=== PATIENT | male | born 1950 | race Caucasian/White ===

== ENCOUNTER 2016-09-16 12:53 | Emergency (ER) | payer OTHER ==
--- NOTE | 2016-09-16 14:53 | DIAGNOSTIC IMAGING REPORT ---
PROCEDURE: XR ABDOMEN 1 VIEW INDICATION: CONSTIPATION TECHNIQUE: AP supine and upright views. COMPARISON: Abdominal CT 06/15/16 FINDINGS: Bowel pattern is normal. Soft tissues and osseous structures are normal. Epidural catheter and pump. Lumbar fusion. IMPRESSION: 1. Normal abdomen.
--- NOTE | 2016-09-16 18:25 | ED CLINICAL REPORT ---
Clinical Report - Physicians/Mid Levels [facility] [address] [place] [address] 09/16/2016 12:53 Patient: ROSA ELENA HANNA Time Seen: 1340; initial patient contact. HISTORY OF PRESENT ILLNESS Chief Complaint: BACK PAIN and CHRONIC BACK PAIN. Onset- several years ago. Modifying factors- worsened by bending over and lifting. Not relieved by anything. It is described as being moderate in degree and in the area of the left lower lumbar spine and right lower lumbar spine. The quality is noted to be similar to prior episodes. No radiation. No bladder dysfunction, bowel dysfunction, sensory loss or motor loss. Additional history - States his Suboxone is not working. Patient denies an injury but injury to the head or neck. Similar symptoms previously: Many times. Recent medical care: Not recently seen/assessed. REVIEW OF SYSTEMS No fever, chills or difficulty with urination. He has had abdominal pain and nausea. All systems otherwise negative, except as recorded above. PAST HISTORY Nausea. Hypertension. Abdominal Pain. Substance Abuse. Vomiting. Back Pain. ADDITIONAL SURGERIES: Appendectomy. Back Surgery. SOCIAL HISTORY Never smoker. No alcohol use or drug use. ADDITIONAL NOTES The nursing notes have been reviewed with agreement regarding the chief complaint, PMH and patient medications and allergies. PHYSICAL EXAM Vital Signs: 09/16/2016 13:16 BP: 145/91. HR: 101. RR: 18. O2 saturation: 98%. Temp: 98.1 F. Have been reviewed. Hypertensive. Tachycardic. Respiratory rate normal. Temperature normal. Oxygen saturation normal. Appearance: Alert. No acute distress. ENT: Dry mucous membranes present. CVS: Heart sounds normal. No cardiac murmur. Respiratory: No respiratory distress. Breath sounds normal. Abdomen: No visible injury. Soft and nontender. Bowel sounds normal. No organomegaly. No mass. Back: Moderate soft tissue tenderness in the right lower and left lower lumbar area. No muscle spasm in the back or vertebral point tenderness. Extremities: Extremities exhibit normal ROM. No lower extremity edema. Extremities nontender. Neuro: Oriented X 3. Mood/affect normal. Straight leg raising: negative on the right and negative on the left. PROGRESS AND PROCEDURES Disposition: Discharged home in good and improved condition. Condition: good. CLINICAL IMPRESSION Chronic nontraumatic lumbar back pain associated with muscle strain. INSTRUCTIONS Your Current Medications: STOP TAKING THE FOLLOWING MEDICATIONS: Suboxone Sublingual. CONTINUE TAKING THE FOLLOWING MEDICATIONS: Gabapentin Oral : Capsule 300 mg, 4 pills a day, 2 in am 2 in pm. Laxative/Stool Softener*. Oxybutynin Chloride Oral : for urine flow. Prescription Medications: Hydrocodone/APAP 5mg / 325mg: take 1-2 orally every 6 hours. Dispense twenty (20). No refill. Follow-up: Follow up with your doctor tomorrow. Call for an appointment. Screening today revealed the patient's blood pressure to be in the hypertensive range. The patient should follow up with a primary care provider for blood pressure management. (Electronically signed by Farshad Gaitan Dr. 09/17/2016 21:36)
--- NOTE | 2016-09-16 18:25 | ED CLINICAL REPORT ---
Clinical Report - Physicians/Mid Levels [facility] [address] [place] [address] 09/16/2016 12:53 Patient: ROSA ELENA HANNA Time Seen: 1340; initial patient contact. HISTORY OF PRESENT ILLNESS Chief Complaint: BACK PAIN and CHRONIC BACK PAIN. Onset- several years ago. Modifying factors- worsened by bending over and lifting. Not relieved by anything. It is described as being moderate in degree and in the area of the left lower lumbar spine and right lower lumbar spine. The quality is noted to be similar to prior episodes. No radiation. No bladder dysfunction, bowel dysfunction, sensory loss or motor loss. Additional history - States his Suboxone is not working. Patient denies an injury but injury to the head or neck. Similar symptoms previously: Many times. Recent medical care: Not recently seen/assessed. REVIEW OF SYSTEMS No fever, chills or difficulty with urination. He has had abdominal pain and nausea. All systems otherwise negative, except as recorded above. PAST HISTORY Nausea. Hypertension. Abdominal Pain. Substance Abuse. Vomiting. Back Pain. ADDITIONAL SURGERIES: Appendectomy. Back Surgery. SOCIAL HISTORY Never smoker. No alcohol use or drug use. ADDITIONAL NOTES The nursing notes have been reviewed with agreement regarding the chief complaint, PMH and patient medications and allergies. PHYSICAL EXAM Vital Signs: 09/16/2016 13:16 BP: 145/91. HR: 101. RR: 18. O2 saturation: 98%. Temp: 98.1 F. Have been reviewed. Hypertensive. Tachycardic. Respiratory rate normal. Temperature normal. Oxygen saturation normal. Appearance: Alert. No acute distress. ENT: Dry mucous membranes present. CVS: Heart sounds normal. No cardiac murmur. Respiratory: No respiratory distress. Breath sounds normal. Abdomen: No visible injury. Soft and nontender. Bowel sounds normal. No organomegaly. No mass. Back: Moderate soft tissue tenderness in the right lower and left lower lumbar area. No muscle spasm in the back or vertebral point tenderness. Extremities: Extremities exhibit normal ROM. No lower extremity edema. Extremities nontender. Neuro: Oriented X 3. Mood/affect normal. Straight leg raising: negative on the right and negative on the left. PROGRESS AND PROCEDURES Disposition: Discharged home in good and improved condition. Condition: good. CLINICAL IMPRESSION Chronic nontraumatic lumbar back pain associated with muscle strain. INSTRUCTIONS Your Current Medications: STOP TAKING THE FOLLOWING MEDICATIONS: Suboxone Sublingual. CONTINUE TAKING THE FOLLOWING MEDICATIONS: Gabapentin Oral : Capsule 300 mg, 4 pills a day, 2 in am 2 in pm. Laxative/Stool Softener*. Oxybutynin Chloride Oral : for urine flow. Prescription Medications: Hydrocodone/APAP 5mg / 325mg: take 1-2 orally every 6 hours. Dispense twenty (20). No refill. Follow-up: Follow up with your doctor tomorrow. Call for an appointment. Screening today revealed the patient's blood pressure to be in the hypertensive range. The patient should follow up with a primary care provider for blood pressure management. (Electronically signed by Farshad Gaitan Dr. 09/17/2016 21:36)
--- NOTE | 2016-09-16 18:25 | ED NURSING NOTES ---
Clinical Report - Nurses [facility] [address] [place] [address] 09/16/2016 12:53 Patient: ROSA ELENA HANNA TRIAGE Triage time 13:16 Sep 16 2016. Acuity: LEVEL 3. Chief Complaint: NAUSEA. Alert. No acute distress. (anxious, tearful). --13:24 Josefa Cherry R.N. 13:16 09/16/16. BP: 145/91. HR: 101. RR: 18. O2 saturation: 98%. Temp: 98.1 F. Pain level now 05/17. --13:24 Josefa Cherry R.N. Triage time 13:44 Sep 16 2016. Acuity: LEVEL 3. Chief Complaint: ABDOMINAL PAIN, NAUSEA and VOMITING and FEVER (constipation). SEPSIS SCREEN: Sepsis Screen: negative heart rate greater than 90. --13:50 Jaspreet New R.N. 13:44 09/16/16. BP: 158/84. HR: 102. RR: 18. O2 saturation: 97% on room air. Temp: 99 F. FLACC pain scale: 4/10. --13:50 Jaspreet New R.N. Weight: 75.2 kg measured. Height/Length: 70 inches Per Patient. BMI: 23.8. --13:16 Josefa Cherry R.N. Medications Suboxone Sublingual. --13:19 Josefa Cherry R.N. Oxybutynin Chloride Oral (for urine flow). --13:20 Josefa Cherry R.N. Gabapentin Oral (Capsule 300 mg), 4 pills a day, 2 in am 2 in pm. --13:20 Josefa Cherry R.N. Laxative/Stool Softener. --13:46 Jaspreet New R.N. Implanted Neuro-stimulator device. --18:45 Prashant Munoz R.N. Medication/allergy information source: the patient. --13:24 Josefa Cherry R.N. Allergies Tramadol. --13:47 Jaspreet New R.N. The following entry was struck by Jaspreet New R.N., 13:47 (09/16/16) Reason - other(Pt reports he thinks he might have had an allergic rxn to tramadol). <<STRICKEN ENTRY-- No Known Drug Allergy. --13:19 Josefa Cherry R.N. --END STRIKE>>. History Arrived by private vehicle. Historian: patient. Accompanied by family and (son). Primary physician (Dr. Wise). ( "My low to middle back hurts, I'm nauseated and have blurred vision". "I take Gabapentin for back pain". Pt states his meds are not "dissolving" and "constipated". Pt states he's had these symptoms for awhile, cannot pin point the date. [place] out of town.). The patient has had nausea and constipation. Treatment LEGAL EXECUTIVE ASSISTANT: None. PAST MEDICAL HX: Immunizations: seasonal influenza. SOCIAL HX: Heavy tobacco smoker (cigarette)- less than 1 pack per day. No alcohol use or drug use. No recent travel. No infectious disease exposure. No known contact with a sick individual. FALL RISK ASSESSMENT: Fall risk assessment completed. No fall risk identified. NUTRITIONAL RISK ASSESSMENT: The nutritional risk assessment revealed no deficiencies. FUNCTIONAL ASSESSMENT: Functional assessment: no impairments noted. LEARNING NEEDS ASSESSMENT: The learning needs assessment revealed no barriers. SKIN INTEGRITY ASSESSMENT: Skin integrity risk assessment completed. No skin integrity risk identified. --13:24 Josefa Cherry R.N. Arrived by private vehicle. Historian: patient. Onset. (1 week ago). He has had fever, nausea, vomiting and abdominal pain. He has had constipation (Pt reports last BM last night but takes a laxative regularly). PAST MEDICAL HX: Immunizations: up-to-date. SURGERY HX: Back surgery. Laminectomy; fusion at L2-L3. (L2-L3 fusion with hardware d/t injury). Dental surgery (teeth removal). Splenectomy. SOCIAL HX: Current every day heavy tobacco smoker- less than 1 pack per day. Alcohol use; consumes beer occasionally and wine by the glass. History of drug use: marijuana. No known contact with a sick individual. ( Past Hx of marijuana use). FALL RISK ASSESSMENT: Fall risk assessment completed. No fall risk identified. NUTRITIONAL RISK ASSESSMENT: The nutritional risk assessment revealed no deficiencies. FUNCTIONAL ASSESSMENT: Functional assessment: no impairments noted. LEARNING NEEDS ASSESSMENT: The learning needs assessment revealed no barriers. SKIN INTEGRITY ASSESSMENT: Skin integrity risk assessment completed. No skin integrity risk identified. --13:50 Jaspreet New R.N. SOCIAL HX: Infectious disease exposure. (Hepatitis A). --13:57 Jaspreet New R.N. PROBLEMS: Nausea. Hypertension. Abdominal Pain. Substance Abuse. Vomiting. Back Pain. --13:21 Josefa Cherry R.N. ADDITIONAL SURGERIES: Appendectomy. --13:21 Josefa Cherry R.N. Implanted Neuro-stimulator device. --18:46 Prashant Munoz R.N. The following entry was struck by Prashant Munoz R.N., 18:45 <<STRICKEN ENTRY-- Back Surgery. --15:52 Josefa Cherry R.N. --END STRIKE>>. Interventions ID band on patient. To room. --13:24 Josefa Cherry R.N. ID band on patient. To treatment room. --13:50 Jaspreet New R.N. PHYSICAL ASSESSMENT GENERAL / NEURO / PSYCH: Alert. Appears in pain and anxious. RESPIRATORY: Mild respiratory distress. GI / : Abdominal tenderness in the epigastric area. SKIN: Skin is warm and dry. --13:51 Jaspreet New R.N. NURSING PROGRESS NOTES Monitoring of patient in place. Reassurance given. Two patient identifiers checked. Call light placed in reach. Bed placed in lowest position. Patient ready for evaluation- chart flagged. Patient waiting for evaluation. --13:52 Jaspreet New R.N. Patient gowned. --13:54 Jaspreet New R.N. 16:05 09/16/2016 Site #1 started via IV in the right antecubital space with an 20g angiocath, with good blood return; one attempt. Blood drawn: rainbow set. Labeled in the presence of the patient and sent to the lab. Saline lock flushed with 10 mL saline. --16:05 Jaspreet New R.N. Patient ID band checked for patient name and birthdate: patient confirmed. Blood samples drawn by nurse per protocol ; labeled in presence of the patient and sent to lab: rainbow set. Checked patient name and birthdate: patient confirmed. Instructions provided to collect clean catch urine and patient verbalized understanding. Clean catch urine collected with return of yellow-colored clear urine; sample sent to lab for urinalysis. Specimen labeled in the presence of the patient. --16:06 Jaspreet New R.N. 16:05 09/16/16. BP: 130/99. HR: 79. RR: 16. O2 saturation: 98% on room air. Temp: 98.4 F. Pain level now: 02/14. --16:06 Jaspreet New R.N. ( Patient has been resting quietly and is suddenly agitated, standing up at bedside, states "I'm withdrawing from my Suboxone". MD ordered IV Morphine at this time. Pt's VS elevated.). --18:07 Jaspreet New R.N. 18:07 09/16/16. BP: 160/50. HR: 86. RR: 18. O2 saturation: 95% on room air. Pain level now: 03/17. --18:07 Jaspreet New R.N. 18:08 09/16/2016 Morphine IVP 4 mg given. via site #1. Allergies verified, confirmed 5 rights and sedative warning given to the patient. IV patency established. IV site checked: no pain, redness, or swelling. IV flushed thoroughly pre- and post-medication administration. IVP given by RN. --18:09 Jaspreet New R.N. 19:02 09/16/2016 Site #1 removed upon discharge. Catheter intact. Manual pressure applied. --19:02 Jaspreet New R.N. 19:02 09/16/2016 Morphine IVP Response: no adverse reaction pain is improving. Symptoms have improved the patient feels better. --19:02 Jaspreet Nwe R.N. Reassessment after intervention and medication administered. He is calm. Overall patient status is improved- he states feels better. --19:03 Jaspreet New R.N. DISPOSITION / DISCHARGE Condition at departure: improved and stable. No learning barriers present. Discharge instructions provided and reviewed with the patient. Reviewed medication(s) side effects and precautions information. Prescription(s) given to the patient. Reviewed referral to a primary care physician. Patient verbalized understanding. Written instructions provided in Bulgarian. The patient was discharged by the physician. He was discharged home and accompanied by family. He left the Emergency Department ambulatory and via private vehicle. Family member driving (Patient is calling his son to take him home this evening.). --19:04 Jaspreet New R.N. 19:04 09/16/16. BP: 147/88. HR: 78. RR: 16. O2 saturation: 96% on room air. Temp: 98.3 F. Pain level now: 12/15. --19:04 Jaspreet New R.N. Locked/Released at 09/16/2016 19:16 by Jaspreet New R.N.
--- NOTE | 2016-09-16 18:25 | ED ORDER SUMMARY ---
..... Patient: ROSA ELENA HANNA OrderSheet [facility] VisitID: [id number] [place] [address] 66y, M Registration Date/Time: 09/16/2016 ORDER SHEET Weight: 75.2 kg (measured) Allergies: Tramadol GENERAL ORDERS: Abdomen 1V Urgent (14:15 09/16/2016 Crista Weiss) (Ack 14:32 TBergley) (15:01 TBergley) CBC w Diff Urgent (15:51 09/16/2016 Crista Weiss) (Ack 15:57 TBergley) (16:04 MCook R.N.) CMP Urgent (15:51 09/16/2016 Crista Weiss) (Ack 15:57 TBergley) (16:04 MCook R.N.) UA-Culture if indicated Urgent (15:51 09/16/2016 Crista Weiss) (Ack 15:57 TBergley) (16:04 MCook R.N.) Amylase Urgent (15:51 09/16/2016 Crista Weiss) (Ack 15:57 TBergley) (16:04 MCook R.N.) Lipase Urgent (15:51 09/16/2016 Crista Weiss) (Ack 15:57 TBergley) (16:04 MCook R.N.) MEDICATION ORDERS: IV FLUIDS: IV Saline Lock (15:51 09/16/2016 Crista Weiss) (16:05 MCook R.N.) Morphine IV 4 mg (HIGH ALERT MEDICATION, NOW) (17:58 09/16/2016 Crista Weiss) (18:09 MCook R.N.) ORDER SHEET NOTES: [Electronically signed by Jaspreet New R.N. (19:16 09/16/2016)] [Electronically signed by Farshad Gaitan Dr. (21:36 09/17/2016)] [Electronically locked/signed by Jaspreet New R.N. (19:16 09/16/2016)]
--- NOTE | 2016-09-16 18:25 | ED ORDER SUMMARY ---
..... Patient: ROSA ELENA HANNA OrderSheet [facility] VisitID: [id number] [place] [address] 66y, M Registration Date/Time: 09/16/2016 ORDER SHEET Weight: 75.2 kg (measured) Allergies: Tramadol GENERAL ORDERS: Abdomen 1V Urgent (14:15 09/16/2016 Crista Weiss) (Ack 14:32 TBergley) (15:01 TBergley) CBC w Diff Urgent (15:51 09/16/2016 Crista Weiss) (Ack 15:57 TBergley) (16:04 MCook R.N.) CMP Urgent (15:51 09/16/2016 Crista Weiss) (Ack 15:57 TBergley) (16:04 MCook R.N.) UA-Culture if indicated Urgent (15:51 09/16/2016 Crista Weiss) (Ack 15:57 TBergley) (16:04 MCook R.N.) Amylase Urgent (15:51 09/16/2016 Crista Weiss) (Ack 15:57 TBergley) (16:04 MCook R.N.) Lipase Urgent (15:51 09/16/2016 Crista Weiss) (Ack 15:57 TBergley) (16:04 MCook R.N.) MEDICATION ORDERS: IV FLUIDS: IV Saline Lock (15:51 09/16/2016 Crista Weiss) (16:05 MCook R.N.) Morphine IV 4 mg (HIGH ALERT MEDICATION, NOW) (17:58 09/16/2016 Crista Weiss) (18:09 MCook R.N.) ORDER SHEET NOTES: [Electronically signed by Jaspreet New R.N. (19:16 09/16/2016)] [Electronically signed by Farshad Gaitan Dr. (21:36 09/17/2016)] [Electronically locked/signed by Jaspreet New R.N. (19:16 09/16/2016)]
--- NOTE | 2016-09-17 21:37 | ED MED RECONCILIATION SUMMARY ---
Patient: ROSA ELENA HANNA Medication Reconciliation Report [facility] VisitID: [id number] [address] [place] [address] 66y, M Registration Date/Time: 09/16/2016 Weight: 75.2 kg Height/Length: 70 in. BMI: 23.8 ALLERGIES: Tramadol The patient's Home Medications are listed below: STOP TAKING THE FOLLOWING MEDICATIONS: Suboxone Sublingual CONTINUE TAKING THE FOLLOWING MEDICATIONS: Gabapentin Oral (300 mg), 4 pills a day, 2 in am 2 in pm Laxative/Stool Softener Oxybutynin Chloride Oral, for urine flow THE FOLLOWING MEDICATIONS NEED TO BE RECONCILED: Implanted Neuro-stimulator device The source(s) of the original Home Medication information: patient The following Medications were given to the patient in the Emergency Department: Morphine [IVP] IVP 4 mg, administered: 09/16/2016 6:08:00 PM The following Medications were prescribed to the patient: Hydrocodone/APAP 5mg / 325mg: take 1-2 orally every 6 hours. Dispense twenty (20). No refill. -- Farshad Gaitan Dr.
--- NOTE | 2016-09-17 21:37 | ED MAR SUMMARY ---
..... Medication Administration Record [facility] [address] [place] [address] Patient: ROS AELENA HANNA Visit ID: [id number] 66y, M Weight: 75.2 kg Height/Length: 70 in BMI: 23.8 ALLERGIES: Tramadol Given 18:08 09/16/2016 Jaspreet New R.N. Medication Administered: MORPHINE [IVP], Dose: 4 mg IVP, Site: #1 right AC. Medication Ordered: Morphine IV 4 mg (HIGH ALERT MEDICATION, NOW).
--- NOTE | 2016-09-17 21:37 | ED DISCHARGE INSTRUCTIONS ---
Patient: ROSA ELENA HANNA General Instructions [facility] VisitID: [id number] [place] [address] 66y, M Registration Date/Time: 09/16/2016 Chronic nontraumatic lumbar back pain associated with muscle strain. INSTRUCTIONS Your Current Medications: STOP TAKING THE FOLLOWING MEDICATIONS: Suboxone Sublingual. CONTINUE TAKING THE FOLLOWING MEDICATIONS: Gabapentin Oral : Capsule 300 mg, 4 pills a day, 2 in am 2 in pm. Laxative/Stool Softener*. Oxybutynin Chloride Oral : for urine flow. Prescription Medications: Hydrocodone/APAP 5mg / 325mg: take 1-2 orally every 6 hours. Dispense twenty (20). No refill. Follow-up: Follow up with your doctor tomorrow. Call for an appointment. Screening today revealed the patient's blood pressure to be in the hypertensive range. The patient should follow up with a primary care provider for blood pressure management. ADDITIONAL INFORMATION Back Pain [Acute Or Chronic] Back pain is usually caused by an injury to the muscles or ligaments of the spine. Sometimes the disks that separate each bone in the spine may bulge and cause pain by pressing on a nearby nerve. Back pain may also appear after a sudden twisting/bending force (such as in a car accident), after a simple awkward movement, or lifting something heavy with poor body positioning. In either case, muscle spasm is often present and adds to the pain. Acute back pain usually gets better in one to two weeks. Back pain related to disk disease, arthritis in the spinal joints or spinal stenosis (narrowing of the spinal canal) can become chronic and last for months or years. Unless you had a physical injury (for example, a car accident or fall) X-rays are usually not ordered for the initial evaluation of back pain. If pain continues and does not respond to medical treatment, x-rays and other tests may be performed at a later time. Home Care: You may need to stay in bed the first few days. But, as soon as possible, begin sitting or walking to avoid problems with prolonged bed rest (muscle weakness, worsening back stiffness and pain, blood clots in the legs). When in bed, try to find a position of comfort. A firm mattress is best. Try lying flat on your back with pillows under your knees. You can also try lying on your side with your knees bent up towards your chest and a pillow between your knees. Avoid prolonged sitting. This puts more stress on the lower back than standing or walking. During the first two days after injury, apply an ICE PACK to the painful area for 20 minutes every 2-4 hours. This will reduce swelling and pain. HEAT (hot shower, hot bath or heating pad) works well for muscle spasm. You can start with ice, then switch to heat after two days. Some patients feel best alternating ice and heat treatments. Use the one method that feels the best to you. You may use acetaminophen (Tylenol) or ibuprofen (Motrin, Advil) to control pain, unless another pain medicine was prescribed. [NOTE: If you have chronic liver or kidney disease or ever had a stomach ulcer or GI bleeding, talk with your doctor before using these medicines.] Be aware of safe lifting methods and do not lift anything over 15 pounds until all the pain is gone. Follow Up with your doctor or this facility if your symptoms do not start to improve after one week. Physical therapy may be needed. [NOTE: If X-rays were taken, they will be reviewed by a radiologist. You will be notified of any new findings that may affect your care.] Get Prompt Medical Attention if any of the following occur: Pain becomes worse or spreads to your legs Weakness or numbness in one or both legs Loss of bowel or bladder control Numbness in the groin or genital area Hydrocodone Bitartrate, Acetaminophen Oral tablet What is this medicine? ACETAMINOPHEN; HYDROCODONE (a set a LEEROY zahida fen; krys droe KOE done) is a pain reliever. It is used to treat mild to moderate pain. How should I use this medicine? Take this medicine by mouth. Swallow it with a full glass of water. Follow the directions on the prescription label. If the medicine upsets your stomach, take the medicine with food or milk. Do not take more than you are told to take. Talk to your privacy director regarding the use of this medicine in children. This medicine is not approved for use in children. What side effects may I notice from receiving this medicine? Side effects that you should report to your doctor or health gericare aide teacher as soon as possible: allergic reactions like skin rash, itching or hives, swelling of the face, lips, or tongue breathing problems confusion feeling faint or lightheaded, falls stomach pain yellowing of the eyes or skin Side effects that usually do not require medical attention (report to your doctor or health gericare aide teacher if they continue or are bothersome): nausea, vomiting stomach upset What may interact with this medicine? alcohol antihistamines isoniazid medicines for depression, anxiety, or psychotic disturbances medicines for sleep muscle relaxants naltrexone narcotic medicines (opiates) for pain phenobarbital ritonavir tramadol What if I miss a dose? If you miss a dose, take it as soon as you can. If it is almost time for your next dose, take only that dose. Do not take double or extra doses. Where should I keep my medicine? Keep out of the reach of children. This medicine can be abused. Keep your medicine in a safe place to protect it from theft. Do not share this medicine with anyone. Selling or giving away this medicine is dangerous and against the law. Store at room temperature between 15 and 30 degrees C (59 and 86 degrees F). Protect from light. Keep container tightly closed. Throw away any unused medicine after the expiration date. Discard unused medicine and used packaging carefully. Pets and children can be harmed if they find used or lost packages. What should I tell my health care provider before I take this medicine? They need to know if you have any of these conditions: brain tumor Crohn's disease, inflammatory bowel disease, or ulcerative colitis drink more than 3 alcohol-containing drinks per day drug abuse or addiction head injury heart or circulation problems kidney disease or problems going to the bathroom liver disease lung disease, asthma, or breathing problems an unusual or allergic reaction to acetaminophen, hydrocodone, other opioid analgesics, other medicines, foods, dyes, or preservatives or trying to get breast-feeding What should I watch for while using this medicine? Tell your doctor or health gericare aide teacher if your pain does not go away, if it gets worse, or if you have new or a different type of pain. You may develop tolerance to the medicine. Tolerance means that you will need a higher dose of the medicine for pain relief. Tolerance is normal and is expected if you take the medicine for a long time. Do not suddenly stop taking your medicine because you may develop a severe reaction. Your body becomes used to the medicine. This does NOT mean you are addicted. Addiction is a behavior related to getting and using a drug for a non-medical reason. If you have pain, you have a medical reason to take pain medicine. Your doctor will tell you how much medicine to take. If your doctor wants you to stop the medicine, the dose will be slowly lowered over time to avoid any side effects. You may get drowsy or dizzy when you first start taking the medicine or change doses. Do not drive, use machinery, or do anything that may be dangerous until you know how the medicine affects you. Stand or sit up slowly. There are different types of narcotic medicines (opiates) for pain. If you take more than one type at the same time, you may have more side effects. Give your health care provider a list of all medicines you use. Your doctor will tell you how much medicine to take. Do not take more medicine than directed. Call emergency for help if you have problems breathing. The medicine will cause constipation. Try to have a bowel movement at least every 2 to 3 days. If you do not have a bowel movement for 3 days, call your doctor or health gericare aide teacher. Too much acetaminophen can be very dangerous. Do not take Tylenol (acetaminophen) or medicines that contain acetaminophen with this medicine. Many non-prescription medicines contain acetaminophen. Always read the labels carefully. You have been given the following additional information: Back Pain (Acute Or Chronic) Hydrocodone Bitartrate, Acetaminophen Oral tablet (Electronically signed by Farshad Gaitan Dr. 09/17/2016 21:36)
--- NOTE | 2016-09-17 21:37 | ED MAR SUMMARY ---
..... Medication Administration Record [facility] [address] [place] [address] Patient: ROSA ELENA HANNA Visit ID: [id number] 66y, M Weight: 75.2 kg Height/Length: 70 in BMI: 23.8 ALLERGIES: Tramadol Given 18:08 09/16/2016 Jaspreet New R.N. Medication Administered: MORPHINE [IVP], Dose: 4 mg IVP, Site: #1 right AC. Medication Ordered: Morphine IV 4 mg (HIGH ALERT MEDICATION, NOW).
--- NOTE | 2016-09-17 21:37 | ED MED RECONCILIATION SUMMARY ---
Patient: ROSA ELENA HANNA Medication Reconciliation Report [facility] VisitID: [id number] [address] [place] [address] 66y, M Registration Date/Time: 09/16/2016 Weight: 75.2 kg Height/Length: 70 in. BMI: 23.8 ALLERGIES: Tramadol The patient's Home Medications are listed below: STOP TAKING THE FOLLOWING MEDICATIONS: Suboxone Sublingual CONTINUE TAKING THE FOLLOWING MEDICATIONS: Gabapentin Oral (300 mg), 4 pills a day, 2 in am 2 in pm Laxative/Stool Softener Oxybutynin Chloride Oral, for urine flow THE FOLLOWING MEDICATIONS NEED TO BE RECONCILED: Implanted Neuro-stimulator device The source(s) of the original Home Medication information: patient The following Medications were given to the patient in the Emergency Department: Morphine [IVP] IVP 4 mg, administered: 09/16/2016 6:08:00 PM The following Medications were prescribed to the patient: Hydrocodone/APAP 5mg / 325mg: take 1-2 orally every 6 hours. Dispense twenty (20). No refill. -- Farshad Gaitan Dr.
== END 2016-09-16 19:08 | disposition home or self-care (01) ==
LOC: ED SRH 12:53
DX: S33.5XXA Sprain of ligaments of lumbar spine, initial encounter (principal); X50.0XXA Overexertion from strenuous movement or load, initial encounter; Y92.9 Unspecified place or not applicable; Y99.9 Unspecified external cause status; Y93.9 Activity, unspecified; G89.29 Other chronic pain; I10 Essential (primary) hypertension; Z79.891 Long term (current) use of opiate analgesic; Z79.899 Other long term (current) drug therapy
CPT/HCPCS: 90004; 90100; 92235; 92530; 95059

== ENCOUNTER 2016-09-18 20:15 | Emergency (ER) | payer OTHER ==
--- NOTE | 2016-09-18 20:54 | ED NURSING NOTES ---
Clinical Report - Nurses [facility] [address] [place] [address] 09/18/2016 20:15 Patient: ROSA ELENA HANNA TRIAGE Triage time 20:23 Sep 18 2016. Acuity: LEVEL 5. Chief Complaint: (Medication Refill). 20:27 09/18/16. Alert. No acute distress. SEPSIS SCREEN: Sepsis Screen. Negative (no infection suspected/documented). PURA COMA SCORE: Pura Coma Scale: 15- eyes open spontaneously (4); best verbal response- oriented x 4 (5); best motor response- obeys commands (6). --20:27 Maria King 20:27 09/18/16. BP: 133/88. HR: 82. RR: 14. O2 saturation: 100%. Temp: 98.1 F. Pain level now 9/10. --20:27 Maria King. Weight: 75.2 kg stated. Height/Length: 70 inches Per Patient. BMI: 23.8. --20:26 Maria King. Medications Gabapentin Oral (Capsule 300 mg), 4 pills a day, 2 in am 2 in pm. Implanted Neuro-stimulator device. Laxative/Stool Softener. Oxybutynin Chloride Oral (for urine flow). --20:25 Maria King Suboxone Sublingual (was told not to take anymore). --20:25 Maria King. Medication/allergy information source: the patient. --20:27 Maria King. Allergies Tramadol. --20:25 Maria King. History Arrived by private vehicle. Historian: patient. Unaccompanied. Primary physician (Frandy. Pain management is Michael in [facility]). Location: lower back. Previous treatment: Previously seen in ED two days ago. Prescription given. (Vicoden). ( PT states he is out of pain medication and unable to get it refilled. No changes to his back pain.). PAST MEDICAL HX: Immunizations: up-to-date. SOCIAL HX: Heavy tobacco smoker (cigarette)- less than 1 pack per day. No alcohol use or drug use. FALL RISK ASSESSMENT: Fall risk assessment completed. No fall risk identified. NUTRITIONAL RISK ASSESSMENT: The nutritional risk assessment revealed no deficiencies. FUNCTIONAL ASSESSMENT: Functional assessment: no impairments noted. LEARNING NEEDS ASSESSMENT: The learning needs assessment revealed no barriers. SKIN INTEGRITY ASSESSMENT: Skin integrity risk assessment completed. No skin integrity risk identified. --20:27 Maria King. PROBLEMS: Nausea. Hypertension. Abdominal Pain. Substance Abuse. Vomiting. Back Pain. --20:26 Maria King. ADDITIONAL SURGERIES: Appendectomy. Back Surgery. Dental Surgery. Implanted Neuro-stimulator device. Splenectomy. --20:26 Maria King. Assessment The patient states feels the same. --20:27 Maria King. Interventions ID band on patient. --20: Maria King. PHYSICAL ASSESSMENT 20:09/18/16. Ambulatory to room. GENERAL / NEURO / PSYCH: Alert. Oriented X 4. Appears in no acute distress. Patient's nutrition appears within normal limits. EXTREMITIES: Extremity pulses are within normal limits. Capillary refill is less than 2 seconds in the extremities. Sensation intact in extremities. ROM of extremities within normal limits. SKIN: Skin is warm and dry. No signs or symptoms of infection. --20:28 Maria King. NURSING PROGRESS NOTES 20:09/18/16. Reassurance given. Two patient identifiers checked. Call light placed in reach. Bed placed in lowest position. Brakes of bed on. Patient ready for evaluation- chart flagged and ED physician and PA notified. --20:28 Maria King. DISPOSITION / DISCHARGE 21:09/18/16. Departure time: 21:Sep 18 2016. Condition at departure: unchanged. The goals identified in the patient's plan of care were met. No learning barriers present. Discharge instructions provided and reviewed with the patient. Reviewed warnings (Pt verbalized understanding of sedation warning. States he will not drive while taking medication.). Reviewed medication(s) side effects and precautions information (Hydrocodone). Treatments reviewed. Reviewed referral to a primary care physician for followup. Patient verbalized understanding. Written instructions provided in Armenian. The patient was discharged by the physician document control assistant. He was discharged home and unaccompanied at time of discharge. He left the Emergency Department ambulatory and via private vehicle. Patient driving. FALL RISK ASSESSMENT: Fall risk assessment completed. No fall risk identified. --21:06 Maria King 21:05 09/18/16. BP: deferred. HR: deferred. RR: deferred. O2 saturation: deferred. Temp: deferred. Pain level now deferred. --21:06 Maria King. Locked/Released at 09/18/2016 21:09 by Maria King,
--- NOTE | 2016-09-18 20:54 | ED NURSING NOTES ---
Clinical Report - Nurses [facility] [address] [place] [address] 09/18/2016 20:15 Patient: ROSA ELENA HANNA TRIAGE Triage time 20:23 Sep 18 2016. Acuity: LEVEL 5. Chief Complaint: (Medication Refill). 20:27 09/18/16. Alert. No acute distress. SEPSIS SCREEN: Sepsis Screen. Negative (no infection suspected/documented). PURA COMA SCORE: Pura Coma Scale: 15- eyes open spontaneously (4); best verbal response- oriented x 4 (5); best motor response- obeys commands (6). --20:27 Maria King 20:27 09/18/16. BP: 133/88. HR: 82. RR: 14. O2 saturation: 100%. Temp: 98.1 F. Pain level now 9/10. --20:27 Maria King. Weight: 75.2 kg stated. Height/Length: 70 inches Per Patient. BMI: 23.8. --20:26 Maria King. Medications Gabapentin Oral (Capsule 300 mg), 4 pills a day, 2 in am 2 in pm. Implanted Neuro-stimulator device. Laxative/Stool Softener. Oxybutynin Chloride Oral (for urine flow). --20:25 Maria King Suboxone Sublingual (was told not to take anymore). --20:25 Maria King. Medication/allergy information source: the patient. --20:27 Maria King. Allergies Tramadol. --20:25 Maria King. History Arrived by private vehicle. Historian: patient. Unaccompanied. Primary physician (Frandy. Pain management is Michael in [facility]). Location: lower back. Previous treatment: Previously seen in ED two days ago. Prescription given. (Vicoden). ( PT states he is out of pain medication and unable to get it refilled. No changes to his back pain.). PAST MEDICAL HX: Immunizations: up-to-date. SOCIAL HX: Heavy tobacco smoker (cigarette)- less than 1 pack per day. No alcohol use or drug use. FALL RISK ASSESSMENT: Fall risk assessment completed. No fall risk identified. NUTRITIONAL RISK ASSESSMENT: The nutritional risk assessment revealed no deficiencies. FUNCTIONAL ASSESSMENT: Functional assessment: no impairments noted. LEARNING NEEDS ASSESSMENT: The learning needs assessment revealed no barriers. SKIN INTEGRITY ASSESSMENT: Skin integrity risk assessment completed. No skin integrity risk identified. --20:27 Maria King. PROBLEMS: Nausea. Hypertension. Abdominal Pain. Substance Abuse. Vomiting. Back Pain. --20:26 Maria King. ADDITIONAL SURGERIES: Appendectomy. Back Surgery. Dental Surgery. Implanted Neuro-stimulator device. Splenectomy. --20:26 Maria King. Assessment The patient states feels the same. --20:27 Maira King. Interventions ID band on patient. --20: Maria King. PHYSICAL ASSESSMENT 20:09/18/16. Ambulatory to room. GENERAL / NEURO / PSYCH: Alert. Oriented X 4. Appears in no acute distress. Patient's nutrition appears within normal limits. EXTREMITIES: Extremity pulses are within normal limits. Capillary refill is less than 2 seconds in the extremities. Sensation intact in extremities. ROM of extremities within normal limits. SKIN: Skin is warm and dry. No signs or symptoms of infection. --20:28 Maria King. NURSING PROGRESS NOTES 20:09/18/16. Reassurance given. Two patient identifiers checked. Call light placed in reach. Bed placed in lowest position. Brakes of bed on. Patient ready for evaluation- chart flagged and ED physician and PA notified. --20:28 Maria King. DISPOSITION / DISCHARGE 21:09/18/16. Departure time: 21:Sep 18 2016. Condition at departure: unchanged. The goals identified in the patient's plan of care were met. No learning barriers present. Discharge instructions provided and reviewed with the patient. Reviewed warnings (Pt verbalized understanding of sedation warning. States he will not drive while taking medication.). Reviewed medication(s) side effects and precautions information (Hydrocodone). Treatments reviewed. Reviewed referral to a primary care physician for followup. Patient verbalized understanding. Written instructions provided in Georgian. The patient was discharged by the physician statistical assistant. He was discharged home and unaccompanied at time of discharge. He left the Emergency Department ambulatory and via private vehicle. Patient driving. FALL RISK ASSESSMENT: Fall risk assessment completed. No fall risk identified. --21:06 Maria Knig 21:05 09/18/16. BP: deferred. HR: deferred. RR: deferred. O2 saturation: deferred. Temp: deferred. Pain level now deferred. --21:06 Maria King. Locked/Released at 09/18/2016 21:09 by Maria King,
--- NOTE | 2016-09-18 20:54 | ED CLINICAL REPORT ---
Clinical Report - Physicians/Mid Levels [facility] [address] [place] [address] 09/18/2016 20:15 Patient: ROSA ELENA HANNA Arrived- By private vehicle. Historian- patient. HISTORY OF PRESENT ILLNESS Chief Complaint: BACK PAIN. It is still present. Additional history - patient reports history of chronic back pain, recently off Suboxone, as it was giving him a dry mouth.. 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 Patient is out of Vicodin. He was unable to see his pain specialist on Tuesday, as he doesn't work on Tuesday, will see him on Tuesday. No new symptoms of back pain. No injury. No radiation of pain currently. No abdominal pain. No urgency or frequency. No shortness of breath or chest pain. This is a same pain patient was seen here recently in the emergency department 2 days prior to arrival, on the . Similar symptoms previously: Recent medical care: The patient was seen recently at this facility. REVIEW OF SYSTEMS No urinary frequency, hematuria, nausea or diarrhea. All systems otherwise negative, except as recorded above. PAST HISTORY Problems: Nausea. Hypertension. Abdominal Pain. Substance Abuse. Vomiting. Back Pain. Additional Surgeries: Appendectomy. Back Surgery. Dental Surgery. Implanted Neuro-stimulator device. Splenectomy. Medications: Suboxone Sublingual (was told not to take anymore). Gabapentin Oral (Capsule 300 mg), 4 pills a day, 2 in am 2 in pm. Implanted Neuro-stimulator device. Laxative/Stool Softener. Oxybutynin Chloride Oral (for urine flow). Allergies: Tramadol. SOCIAL HISTORY Smoker- current status unknown. No alcohol use or drug use. ADDITIONAL NOTES The nursing notes have been reviewed. PHYSICAL EXAM Vital Signs: 09/18/2016 20:27 BP: 133/88. HR: 82. RR: 14. O2 saturation: 100%. Temp: 98.1 F. Appearance: Alert. Eyes: Pupils equal, round and reactive to light. ENT: Ears normal. Neck: Neck nontender. Painless ROM. CVS: Heart sounds normal. No cardiac murmur. Respiratory: No respiratory distress. Breath sounds normal. Abdomen: No visible injury. Soft. Bowel sounds normal. No distention. Back: Mild vertebral point tenderness over the upper, mid and lower lumbar spine. Soft tissue tenderness. Neuro: Oriented X 3. Mood/affect normal. No motor deficit. No sensory deficit. Straight leg raising: negative on the right and negative on the left. PROGRESS AND PROCEDURES Course of Care: There are no risks for spinal epidural abscess or hematoma as patient is without any risk factors such as IVDA or evidence of active infection, no midline tenderness to percussion. Hence I do not feel emergent imaging with an MRI is indicated. However I did discuss with the patient that if these symptoms develop, or if the pain does not resolve an MRI may need to be done outpatient, or in the ED if symptoms worsen acutely or new onset of the above mentioned symptoms develop. 09/18/2016 20:27 BP: 133/88. HR: 82. RR: 14. O2 saturation: 100%. Temp: 98.1 F. Patient is stable. Patient/family counseled. Disposition: Discharged. Condition: good. CLINICAL IMPRESSION Chronic lumbar back pain. INSTRUCTIONS Apply ice. Limit lifting. Prescription Medications: Hydrocodone/APAP 10mg / 325mg: take 1 orally every 6 hours as needed for pain. Dispense twelve (12). No refill. Follow-up: Follow up with a specialist Tuesday. (Electronically signed by Kori Sin P.A.-C 09/19/2016 0:43)
--- NOTE | 2016-09-19 00:43 | ED DISCHARGE INSTRUCTIONS ---
Patient: ROSA ELENA HANNA General Instructions [facility] VisitID: [id number] [place] [address] 66y, M Registration Date/Time: 09/18/2016 Chronic lumbar back pain. INSTRUCTIONS Apply ice. Limit lifting. Prescription Medications: Hydrocodone/APAP 10mg / 325mg: take 1 orally every 6 hours as needed for pain. Dispense twelve (12). No refill. Follow-up: Follow up with a specialist Tuesday. ADDITIONAL INFORMATION Back Pain [Acute Or Chronic] Back pain is usually caused by an injury to the muscles or ligaments of the spine. Sometimes the disks that separate each bone in the spine may bulge and cause pain by pressing on a nearby nerve. Back pain may also appear after a sudden twisting/bending force (such as in a car accident), after a simple awkward movement, or lifting something heavy with poor body positioning. In either case, muscle spasm is often present and adds to the pain. Acute back pain usually gets better in one to two weeks. Back pain related to disk disease, arthritis in the spinal joints or spinal stenosis (narrowing of the spinal canal) can become chronic and last for months or years. Unless you had a physical injury (for example, a car accident or fall) X-rays are usually not ordered for the initial evaluation of back pain. If pain continues and does not respond to medical treatment, x-rays and other tests may be performed at a later time. Home Care: You may need to stay in bed the first few days. But, as soon as possible, begin sitting or walking to avoid problems with prolonged bed rest (muscle weakness, worsening back stiffness and pain, blood clots in the legs). When in bed, try to find a position of comfort. A firm mattress is best. Try lying flat on your back with pillows under your knees. You can also try lying on your side with your knees bent up towards your chest and a pillow between your knees. Avoid prolonged sitting. This puts more stress on the lower back than standing or walking. During the first two days after injury, apply an ICE PACK to the painful area for 20 minutes every 2-4 hours. This will reduce swelling and pain. HEAT (hot shower, hot bath or heating pad) works well for muscle spasm. You can start with ice, then switch to heat after two days. Some patients feel best alternating ice and heat treatments. Use the one method that feels the best to you. You may use acetaminophen (Tylenol) or ibuprofen (Motrin, Advil) to control pain, unless another pain medicine was prescribed. [NOTE: If you have chronic liver or kidney disease or ever had a stomach ulcer or GI bleeding, talk with your doctor before using these medicines.] Be aware of safe lifting methods and do not lift anything over 15 pounds until all the pain is gone. Follow Up with your doctor or this facility if your symptoms do not start to improve after one week. Physical therapy may be needed. [NOTE: If X-rays were taken, they will be reviewed by a radiologist. You will be notified of any new findings that may affect your care.] Get Prompt Medical Attention if any of the following occur: Pain becomes worse or spreads to your legs Weakness or numbness in one or both legs Loss of bowel or bladder control Numbness in the groin or genital area Hydrocodone Bitartrate, Acetaminophen Oral tablet What is this medicine? ACETAMINOPHEN; HYDROCODONE (a set a LEEROY zahida fen; krys droe KOE done) is a pain reliever. It is used to treat mild to moderate pain. How should I use this medicine? Take this medicine by mouth. Swallow it with a full glass of water. Follow the directions on the prescription label. If the medicine upsets your stomach, take the medicine with food or milk. Do not take more than you are told to take. Talk to your fresh food manager regarding the use of this medicine in children. This medicine is not approved for use in children. What side effects may I notice from receiving this medicine? Side effects that you should report to your doctor or health pharmacist critical care as soon as possible: allergic reactions like skin rash, itching or hives, swelling of the face, lips, or tongue breathing problems confusion feeling faint or lightheaded, falls stomach pain yellowing of the eyes or skin Side effects that usually do not require medical attention (report to your doctor or health pharmacist critical care if they continue or are bothersome): nausea, vomiting stomach upset What may interact with this medicine? alcohol antihistamines isoniazid medicines for depression, anxiety, or psychotic disturbances medicines for sleep muscle relaxants naltrexone narcotic medicines (opiates) for pain phenobarbital ritonavir tramadol What if I miss a dose? If you miss a dose, take it as soon as you can. If it is almost time for your next dose, take only that dose. Do not take double or extra doses. Where should I keep my medicine? Keep out of the reach of children. This medicine can be abused. Keep your medicine in a safe place to protect it from theft. Do not share this medicine with anyone. Selling or giving away this medicine is dangerous and against the law. Store at room temperature between 15 and 30 degrees C (59 and 86 degrees F). Protect from light. Keep container tightly closed. Throw away any unused medicine after the expiration date. Discard unused medicine and used packaging carefully. Pets and children can be harmed if they find used or lost packages. What should I tell my health care provider before I take this medicine? They need to know if you have any of these conditions: brain tumor Crohn's disease, inflammatory bowel disease, or ulcerative colitis drink more than 3 alcohol-containing drinks per day drug abuse or addiction head injury heart or circulation problems kidney disease or problems going to the bathroom liver disease lung disease, asthma, or breathing problems an unusual or allergic reaction to acetaminophen, hydrocodone, other opioid analgesics, other medicines, foods, dyes, or preservatives or trying to get breast-feeding What should I watch for while using this medicine? Tell your doctor or health pharmacist critical care if your pain does not go away, if it gets worse, or if you have new or a different type of pain. You may develop tolerance to the medicine. Tolerance means that you will need a higher dose of the medicine for pain relief. Tolerance is normal and is expected if you take the medicine for a long time. Do not suddenly stop taking your medicine because you may develop a severe reaction. Your body becomes used to the medicine. This does NOT mean you are addicted. Addiction is a behavior related to getting and using a drug for a non-medical reason. If you have pain, you have a medical reason to take pain medicine. Your doctor will tell you how much medicine to take. If your doctor wants you to stop the medicine, the dose will be slowly lowered over time to avoid any side effects. You may get drowsy or dizzy when you first start taking the medicine or change doses. Do not drive, use machinery, or do anything that may be dangerous until you know how the medicine affects you. Stand or sit up slowly. There are different types of narcotic medicines (opiates) for pain. If you take more than one type at the same time, you may have more side effects. Give your health care provider a list of all medicines you use. Your doctor will tell you how much medicine to take. Do not take more medicine than directed. Call emergency for help if you have problems breathing. The medicine will cause constipation. Try to have a bowel movement at least every 2 to 3 days. If you do not have a bowel movement for 3 days, call your doctor or health pharmacist critical care. Too much acetaminophen can be very dangerous. Do not take Tylenol (acetaminophen) or medicines that contain acetaminophen with this medicine. Many non-prescription medicines contain acetaminophen. Always read the labels carefully. You have been given the following additional information: Back Pain (Acute Or Chronic) Hydrocodone Bitartrate, Acetaminophen Oral tablet Limit lifting. (Electronically signed by Kori Sin P.A.-C 09/19/2016 0:43)
--- NOTE | 2016-09-19 00:43 | ED MAR SUMMARY ---
..... Medication Administration Record [facility] [address] [place], [place] [id number] Patient: ROSA ELENA HANNA Visit ID: [id number] 66y, M Weight: 75.2 kg Height/Length: 70 in BMI: 23.8 ALLERGIES: Tramadol
--- NOTE | 2016-09-19 00:43 | ED MAR SUMMARY ---
..... Medication Administration Record [facility] [address] [place], [place] [id number] Patient: ROSA ELENA HANNA Visit ID: [id number] 66y, M Weight: 75.2 kg Height/Length: 70 in BMI: 23.8 ALLERGIES: Tramadol
--- NOTE | 2016-09-19 00:43 | ED MED RECONCILIATION SUMMARY ---
Patient: ROSA ELENA HANNA Medication Reconciliation Report [facility] VisitID: [id number] [address] [place] [address] 66y, M Registration Date/Time: 09/18/2016 Weight: 75.2 kg Height/Length: 70 in. BMI: 23.8 ALLERGIES: Tramadol The patient's Home Medications are listed below: THE FOLLOWING MEDICATIONS NEED TO BE RECONCILED: Gabapentin Oral (300 mg), 4 pills a day, 2 in am 2 in pm Implanted Neuro-stimulator device Laxative/Stool Softener Oxybutynin Chloride Oral, for urine flow Suboxone Sublingual, was told not to take anymore The source(s) of the original Home Medication information: patient The following Medications were given to the patient in the Emergency Department: None. The following Medications were prescribed to the patient: Hydrocodone/APAP 10mg / 325mg: take 1 orally every 6 hours as needed for pain. Dispense twelve (12). No refill. -- Kori Sin P.A.-C
--- NOTE | 2016-09-19 00:43 | ED MED RECONCILIATION SUMMARY ---
Patient: ROSA ELENA HANNA Medication Reconciliation Report [facility] VisitID: [id number] [address] [place] [address] 66y, M Registration Date/Time: 09/18/2016 Weight: 75.2 kg Height/Length: 70 in. BMI: 23.8 ALLERGIES: Tramadol The patient's Home Medications are listed below: THE FOLLOWING MEDICATIONS NEED TO BE RECONCILED: Gabapentin Oral (300 mg), 4 pills a day, 2 in am 2 in pm Implanted Neuro-stimulator device Laxative/Stool Softener Oxybutynin Chloride Oral, for urine flow Suboxone Sublingual, was told not to take anymore The source(s) of the original Home Medication information: patient The following Medications were given to the patient in the Emergency Department: None. The following Medications were prescribed to the patient: Hydrocodone/APAP 10mg / 325mg: take 1 orally every 6 hours as needed for pain. Dispense twelve (12). No refill. -- Kori Sin P.A.-C
== END 2016-09-18 21:07 | disposition home or self-care (01) ==
LOC: ED SRH 20:15
DX: M54.5 Low back pain (principal); G89.29 Other chronic pain; I10 Essential (primary) hypertension; Z90.49 Acquired absence of other specified parts of digestive tract; Z88.5 Allergy status to narcotic agent

== ENCOUNTER 2017-01-15 17:36 | Emergency (ER) | payer OTHER ==
--- NOTE | 2017-01-15 17:54 | ED NURSING NOTES ---
Clinical Report - Nurses [facility] [address] [place] [address] 01/15/2017 17:37 Patient: ROSA ELENA HANNA TRIAGE Triage time 17:41. Acuity: LEVEL 5. Chief Complaint: LEFT LOWER TOOTHACHE. --17:48 Danitza Anthony R.N. 17:41 01/15/17. BP: 165/97 taken on the left arm, while lying. HR: 98. RR: 18. O2 saturation: 97% on room air. Temp: 98.1 F (oral). Pain level now: 04/17. --17:48 Danitza Anthony R.N. Weight: 72.5 kg stated. Height/Length: 70 inches Per Patient. BMI: 22.9. --17:42 Danitza Anthony R.N. Medications Gabapentin Oral (Capsule 300 mg), 3x a day. --17:44 Danitza Anthony R.N. Oxybutynin Chloride ER Oral, daily. --17:45 Danitza Anthony R.N. Hydrocodone-Acetaminophen Oral (Tablet 10-325 mg) 1 tablet, 4x a day. --17:54 Danitza Anthony R.N. The following entry was struck by Danitza Anthony R.N., 17:53 (01/15/17) Reason - other(pt gave wrong info). <<STRICKEN ENTRY-- OxyCODONE HCl Oral 10 mg, 4x a day. --17:44 Danitza Anthony R.N. --END STRIKE>> The following entry was struck and corrected by Danitza Anthony R.N., 17:45 (01/15/17) Reason for correction - other(correction). <<STRICKEN ENTRY-- Gabapentin Oral (Capsule 300 mg), 4 pills a day, 2 in am 2 in pm. --17:44 Danitza Anthony R.N. --END STRIKE>>. Allergies Tramadol. --18:19 Sho Saha R.N. History Arrived by private vehicle. Historian: patient. Unaccompanied. Primary physician (Frandy). Onset. (). ( tooth extraction on now c/o severe pain). He has had a severe toothache involving a single tooth (left lower incisor). PAST MEDICAL HX: Immunizations: up-to-date. SOCIAL HX: Light tobacco smoker (cigarette)- less than 1/2 a pack per day (has not since extraction). History of drug use. Is a recovering addict. No alcohol use. No infectious disease exposure. ABUSE ASSESSMENT: No report of abuse. SELF HARM ASSESSMENT: A self harm assessment was performed. The patient answered "no" to the question "Have you recently felt down, depressed, or hopeless?", "Have you noticed less interest or pleasure in doing things?", "Do you have thoughts of harming or killing yourself?", "Are you here because you tried to hurt yourself?", "Have you ever tried to hurt yourself before today?", "Have you recently had thoughts about harming or killing others?" and "Do you have any dangerous items in your possession?". FALL RISK ASSESSMENT: Fall risk assessment completed. No fall risk identified. NUTRITIONAL RISK ASSESSMENT: The nutritional risk assessment revealed no deficiencies. FUNCTIONAL ASSESSMENT: Functional assessment: no impairments noted. LEARNING NEEDS ASSESSMENT: The learning needs assessment revealed no barriers. SKIN INTEGRITY ASSESSMENT: Skin integrity risk assessment completed. No skin integrity risk identified. --17:48 Danitza Anthony R.N. PROBLEMS: Nausea. Hypertension. Abdominal Pain. Substance Abuse. Vomiting. Back Pain. --17:46 Danitza Anthony R.N. ADDITIONAL SURGERIES: Appendectomy. Back Surgery. Dental Surgery. Implanted Neuro-stimulator device. Splenectomy. --17:46 Danitza Anthony R.N. Interventions ID band on patient. --17:48 Danitza Anthony R.N. PHYSICAL ASSESSMENT Ambulatory to room. GENERAL / NEURO / PSYCH: Alert. Oriented X 4. Appears in pain. HEENT: Pupils equal, round and reactive to light. Pharynx within normal limits. Voice within normal limits. Mouth within normal limits upon inspection. Mucous membranes are pink. RESPIRATORY: Respirations not labored. CVS: Capillary refill less than 2 seconds. SKIN: Skin is warm and dry. Normal skin turgor. --17:49 Danitza Anthony R.N. NURSING PROGRESS NOTES Two patient identifiers checked. Call light placed in reach. Side rails up x 1. Bed placed in lowest position. Brakes of bed on. Patient ready for evaluation- chart flagged. --17:49 Danitza Anthony R.N. DISPOSITION / DISCHARGE 18:12. Condition at departure: unchanged and stable. No learning barriers present. Discharge instructions provided and reviewed with the patient. Reviewed medication(s) (cleocin, percocet). Reviewed referrals (kyesha charles). Patient verbalized understanding. Written instructions provided in Guamanian. The patient was discharged home and unaccompanied at time of discharge. He left the Emergency Department ambulatory and via private vehicle. Patient driving. --18:18 Sho Saha R.N. 18:12 01/15/17. BP: 133/88. HR: 98. RR: 18. O2 saturation: 100%. Temp: deferred. Pain level now: 04/17. --18:18 Sho Saha R.N. Locked/Released at 01/15/2017 18:19 by Sho Saha R.N.
--- NOTE | 2017-01-15 17:54 | ED CLINICAL REPORT ---
Clinical Report - Physicians/Mid Levels [facility] [address] [place] [address] 01/15/2017 17:37 Patient: ROSA ELENA HANNA Time Seen: 17:40. Arrived- By private vehicle. Historian- patient. HISTORY OF PRESENT ILLNESS Chief Complaint: DENTAL PAIN. This started 2 days ago and is still present. It was gradual in onset and has been waxing/waning. Pain described as moderate. The patient has had severe toothache involving a single tooth (left lower incisor). (tooth extraction on now c/o severe pain). Similar symptoms previously: Recent medical care: The patient was seen recently in a clinic. Seen for similar symptoms. Diagnosed as tooth extraction. REVIEW OF SYSTEMS No fever, cough, difficulty breathing, chest pain or nausea. No diarrhea, abdominal pain, difficulty with urination, headache or fainting episodes. No joint pain, skin rash or vomiting. All systems otherwise negative, except as recorded above. PAST HISTORY PCP: Dr Wise Problems: Nausea. Hypertension. Abdominal Pain. Substance Abuse. Vomiting. Back Pain. Surgeries: Appendectomy. Back Surgery. Dental Surgery. Implanted Neuro-stimulator device. Splenectomy. SOCIAL HISTORY Smoker- current status unknown. History of drug use. No alcohol use. ADDITIONAL NOTES The nursing notes have been reviewed. PHYSICAL EXAM Vital Signs: 01/15/2017 17:41 BP: 165/97. HR: 98. RR: 18. O2 saturation: 97%. Temp: 98.1 F. Pain level now: 04/17. Appearance: Alert. Anxious. Patient in moderate distress. Head: Normal external inspection. Eyes: Conjunctivae and eyelids normal. ENT: Localized dental decay with gingival tenderness and swelling (lower left lateral incisor). No gingival fluctuance. Pharynx normal. No trismus present. Uvula midline. No pharyngeal erythema, mouth ulcerations or tonsillar exudate. Neck: Normal inspection. Trachea midline. No adenopathy. Neck supple. CVS: Normal heart rate and rhythm. Heart sounds normal. Pulses normal. Respiratory: No respiratory distress. Breath sounds normal. Abdomen: Soft and nontender. Skin: Normal skin color. Normal skin turgor. Extremities: Extremities exhibit normal ROM. Extremities nontender. Neuro: Oriented X 3. LABS, X-RAYS, AND EKG Pulse Oximetry: 01/15/2017 17:41 O2 saturation: 97%. (FIO2 - room air). Interpretation: normal. PROGRESS AND PROCEDURES Course of Care: Nothing evident to I&D. No systemic symptoms. Localized to extraction site with normal post exaction appearance now. Only 1-2 post extraction, but could be dry socket. He is chronic hydrocodone, but states that this "doesn't work" and requests percocet. Patient/family counseled. Old ED records reviewed. Patient has had multiple ED visits. Disposition: Discharged. Condition: stable and improved. CLINICAL IMPRESSION Dental pain (post extraction pain left lower dentition). Chronic substance abuse- tobacco (cigarettes), marijuana with anxiety. INSTRUCTIONS Drink plenty of fluids. Do not smoke. Seek medical help to quit smoking. Warnings: Further evaluation is necessary. It is very important to follow up with a physician. SEDATIVE MEDICATION: You were given sedative medication during your visit. Do not drive or operate dangerous machinery. CONTROLLED SUBSTANCE WARNINGS. GENERAL WARNINGS: Return or contact your physician immediately if your condition worsens or changes unexpectedly, if not improving as expected, or if other problems arise. Your Current Medications: CONTINUE TAKING THE FOLLOWING MEDICATIONS: Gabapentin Oral : Capsule 300 mg, 3x a day. Oxybutynin Chloride ER Oral : daily. Prescription Medications: Cleocin 300 mg: take 1 capsule orally every 6 hours for 7 days. No refills. Substitution is permissible. Percocet 5 mg/325 mg: take 1-2 tablets orally every 6 hours as needed for pain. Dispense ten (10). No refill. Substitution is permissible. OTC Medications: Motrin (available over the counter): take according to label instructions. Follow-up: Follow up with your doctor in two days. Follow up with a dentist and an oral surgeon in about two days. Follow-up with: Mau Wise MD, [facility], , [facility], [address] [facility] [address] [place] [address] Follow up in about two days. (Electronically signed by Kayode Braswell DO 01/15/2017 20:05)
--- NOTE | 2017-01-15 17:54 | ED CLINICAL REPORT ---
Clinical Report - Physicians/Mid Levels [facility] [address] [place] [address] 01/15/2017 17:37 Patient: ROSA ELENA HANNA Time Seen: 17:40. Arrived- By private vehicle. Historian- patient. HISTORY OF PRESENT ILLNESS Chief Complaint: DENTAL PAIN. This started 2 days ago and is still present. It was gradual in onset and has been waxing/waning. Pain described as moderate. The patient has had severe toothache involving a single tooth (left lower incisor). (tooth extraction on now c/o severe pain). Similar symptoms previously: Recent medical care: The patient was seen recently in a clinic. Seen for similar symptoms. Diagnosed as tooth extraction. REVIEW OF SYSTEMS No fever, cough, difficulty breathing, chest pain or nausea. No diarrhea, abdominal pain, difficulty with urination, headache or fainting episodes. No joint pain, skin rash or vomiting. All systems otherwise negative, except as recorded above. PAST HISTORY PCP: Dr Wise Problems: Nausea. Hypertension. Abdominal Pain. Substance Abuse. Vomiting. Back Pain. Surgeries: Appendectomy. Back Surgery. Dental Surgery. Implanted Neuro-stimulator device. Splenectomy. SOCIAL HISTORY Smoker- current status unknown. History of drug use. No alcohol use. ADDITIONAL NOTES The nursing notes have been reviewed. PHYSICAL EXAM Vital Signs: 01/15/2017 17:41 BP: 165/97. HR: 98. RR: 18. O2 saturation: 97%. Temp: 98.1 F. Pain level now: 04/17. Appearance: Alert. Anxious. Patient in moderate distress. Head: Normal external inspection. Eyes: Conjunctivae and eyelids normal. ENT: Localized dental decay with gingival tenderness and swelling (lower left lateral incisor). No gingival fluctuance. Pharynx normal. No trismus present. Uvula midline. No pharyngeal erythema, mouth ulcerations or tonsillar exudate. Neck: Normal inspection. Trachea midline. No adenopathy. Neck supple. CVS: Normal heart rate and rhythm. Heart sounds normal. Pulses normal. Respiratory: No respiratory distress. Breath sounds normal. Abdomen: Soft and nontender. Skin: Normal skin color. Normal skin turgor. Extremities: Extremities exhibit normal ROM. Extremities nontender. Neuro: Oriented X 3. LABS, X-RAYS, AND EKG Pulse Oximetry: 01/15/2017 17:41 O2 saturation: 97%. (FIO2 - room air). Interpretation: normal. PROGRESS AND PROCEDURES Course of Care: Nothing evident to I&D. No systemic symptoms. Localized to extraction site with normal post exaction appearance now. Only 1-2 post extraction, but could be dry socket. He is chronic hydrocodone, but states that this "doesn't work" and requests percocet. Patient/family counseled. Old ED records reviewed. Patient has had multiple ED visits. Disposition: Discharged. Condition: stable and improved. CLINICAL IMPRESSION Dental pain (post extraction pain left lower dentition). Chronic substance abuse- tobacco (cigarettes), marijuana with anxiety. INSTRUCTIONS Drink plenty of fluids. Do not smoke. Seek medical help to quit smoking. Warnings: Further evaluation is necessary. It is very important to follow up with a physician. SEDATIVE MEDICATION: You were given sedative medication during your visit. Do not drive or operate dangerous machinery. CONTROLLED SUBSTANCE WARNINGS. GENERAL WARNINGS: Return or contact your physician immediately if your condition worsens or changes unexpectedly, if not improving as expected, or if other problems arise. Your Current Medications: CONTINUE TAKING THE FOLLOWING MEDICATIONS: Gabapentin Oral : Capsule 300 mg, 3x a day. Oxybutynin Chloride ER Oral : daily. Prescription Medications: Cleocin 300 mg: take 1 capsule orally every 6 hours for 7 days. No refills. Substitution is permissible. Percocet 5 mg/325 mg: take 1-2 tablets orally every 6 hours as needed for pain. Dispense ten (10). No refill. Substitution is permissible. OTC Medications: Motrin (available over the counter): take according to label instructions. Follow-up: Follow up with your doctor in two days. Follow up with a dentist and an oral surgeon in about two days. Follow-up with: Mau Wise MD, [facility], , [facility], [id number] [facility] [address] [place] [address] Follow up in about two days. (Electronically signed by Kayode Braswell DO 01/15/2017 20:05)
--- NOTE | 2017-01-15 17:54 | ED NURSING NOTES ---
Clinical Report - Nurses [facility] [address] [place] [address] 01/15/2017 17:37 Patient: ROSA ELENA HANNA TRIAGE Triage time 17:41. Acuity: LEVEL 5. Chief Complaint: LEFT LOWER TOOTHACHE. --17:48 Danitza Anthony R.N. 17:41 01/15/17. BP: 165/97 taken on the left arm, while lying. HR: 98. RR: 18. O2 saturation: 97% on room air. Temp: 98.1 F (oral). Pain level now: 04/17. --17:48 Danitza Anthony R.N. Weight: 72.5 kg stated. Height/Length: 70 inches Per Patient. BMI: 22.9. --17:42 Danitza Anthony R.N. Medications Gabapentin Oral (Capsule 300 mg), 3x a day. --17:44 Danitza Anthony R.N. Oxybutynin Chloride ER Oral, daily. --17:45 Danitza Anthony R.N. Hydrocodone-Acetaminophen Oral (Tablet 10-325 mg) 1 tablet, 4x a day. --17:54 Danitza Anthony R.N. The following entry was struck by Danitza Anthony R.N., 17:53 (01/15/17) Reason - other(pt gave wrong info). <<STRICKEN ENTRY-- OxyCODONE HCl Oral 10 mg, 4x a day. --17:44 Danitza Anthony R.N. --END STRIKE>> The following entry was struck and corrected by Danitza Anthony R.N., 17:45 (01/15/17) Reason for correction - other(correction). <<STRICKEN ENTRY-- Gabapentin Oral (Capsule 300 mg), 4 pills a day, 2 in am 2 in pm. --17:44 Danitza Anthony R.N. --END STRIKE>>. Allergies Tramadol. --18:19 Sho Saha R.N. History Arrived by private vehicle. Historian: patient. Unaccompanied. Primary physician (Frandy). Onset. (). ( tooth extraction on now c/o severe pain). He has had a severe toothache involving a single tooth (left lower incisor). PAST MEDICAL HX: Immunizations: up-to-date. SOCIAL HX: Light tobacco smoker (cigarette)- less than 1/2 a pack per day (has not since extraction). History of drug use. Is a recovering addict. No alcohol use. No infectious disease exposure. ABUSE ASSESSMENT: No report of abuse. SELF HARM ASSESSMENT: A self harm assessment was performed. The patient answered "no" to the question "Have you recently felt down, depressed, or hopeless?", "Have you noticed less interest or pleasure in doing things?", "Do you have thoughts of harming or killing yourself?", "Are you here because you tried to hurt yourself?", "Have you ever tried to hurt yourself before today?", "Have you recently had thoughts about harming or killing others?" and "Do you have any dangerous items in your possession?". FALL RISK ASSESSMENT: Fall risk assessment completed. No fall risk identified. NUTRITIONAL RISK ASSESSMENT: The nutritional risk assessment revealed no deficiencies. FUNCTIONAL ASSESSMENT: Functional assessment: no impairments noted. LEARNING NEEDS ASSESSMENT: The learning needs assessment revealed no barriers. SKIN INTEGRITY ASSESSMENT: Skin integrity risk assessment completed. No skin integrity risk identified. --17:48 Danitza Anthony R.N. PROBLEMS: Nausea. Hypertension. Abdominal Pain. Substance Abuse. Vomiting. Back Pain. --17:46 Danitza Anthony R.N. ADDITIONAL SURGERIES: Appendectomy. Back Surgery. Dental Surgery. Implanted Neuro-stimulator device. Splenectomy. --17:46 Danitza Anthony R.N. Interventions ID band on patient. --17:48 Danitza Anthony R.N. PHYSICAL ASSESSMENT Ambulatory to room. GENERAL / NEURO / PSYCH: Alert. Oriented X 4. Appears in pain. HEENT: Pupils equal, round and reactive to light. Pharynx within normal limits. Voice within normal limits. Mouth within normal limits upon inspection. Mucous membranes are pink. RESPIRATORY: Respirations not labored. CVS: Capillary refill less than 2 seconds. SKIN: Skin is warm and dry. Normal skin turgor. --17:49 Danitza Anthony R.N. NURSING PROGRESS NOTES Two patient identifiers checked. Call light placed in reach. Side rails up x 1. Bed placed in lowest position. Brakes of bed on. Patient ready for evaluation- chart flagged. --17:49 Danitza Anthony R.N. DISPOSITION / DISCHARGE 18:12. Condition at departure: unchanged and stable. No learning barriers present. Discharge instructions provided and reviewed with the patient. Reviewed medication(s) (cleocin, percocet). Reviewed referrals (keysha charles). Patient verbalized understanding. Written instructions provided in [place]. The patient was discharged home and unaccompanied at time of discharge. He left the Emergency Department ambulatory and via private vehicle. Patient driving. --18:18 Sho Saha R.N. 18:12 01/15/17. BP: 133/88. HR: 98. RR: 18. O2 saturation: 100%. Temp: deferred. Pain level now: 04/17. --18:18 Sho Saha R.N. Locked/Released at 01/15/2017 18:19 by Sho Saha R.N.
--- NOTE | 2017-01-15 20:05 | ED DISCHARGE INSTRUCTIONS ---
Patient: ROSA ELENA HANNA General Instructions [facility] VisitID: [id number] [place] [address] 66y, M Registration Date/Time: 01/15/2017 Dental pain (post extraction pain left lower dentition). Chronic substance abuse- tobacco (cigarettes), marijuana with anxiety. INSTRUCTIONS Drink plenty of fluids. Do not smoke. Seek medical help to quit smoking. Warnings: Further evaluation is necessary. It is very important to follow up with a physician. SEDATIVE MEDICATION: You were given sedative medication during your visit. Do not drive or operate dangerous machinery. CONTROLLED SUBSTANCE WARNINGS. GENERAL WARNINGS: Return or contact your physician immediately if your condition worsens or changes unexpectedly, if not improving as expected, or if other problems arise. Your Current Medications: CONTINUE TAKING THE FOLLOWING MEDICATIONS: Gabapentin Oral : Capsule 300 mg, 3x a day. Oxybutynin Chloride ER Oral : daily. Prescription Medications: Cleocin 300 mg: take 1 capsule orally every 6 hours for 7 days. No refills. Substitution is permissible. Percocet 5 mg/325 mg: take 1-2 tablets orally every 6 hours as needed for pain. Dispense ten (10). No refill. Substitution is permissible. OTC Medications: Motrin (available over the counter): take according to label instructions. Follow-up: Follow up with your doctor in two days. Follow up with a dentist and an oral surgeon in about two days. Follow-up with: Mau Wise MD, [facility], , [facility], [id number] [id number] Follow up in about two days. ADDITIONAL INFORMATION Dental Pain A crack or cavity in the tooth, which exposes the sensitive inner area of the tooth can cause tooth pain. An infection in the gum or the root of the tooth can cause pain and swelling. The pain is often made worse by drinking hot or cold fluids, or biting on hard foods. Pain may spread from the tooth to the ear or jaw on the same side. Home Care: Avoid hot and cold foods and liquids since your tooth may be sensitive to temperature changes. If your tooth is chipped or cracked, or if there is a large open cavity, apply OIL OF CLOVES (available ulyd-new-mgegyfo in drug stores) directly to the tooth to reduce pain. Some pharmacies carry an [id number]-vcjmofc "toothache kit." This contains a paste, which can be applied over the exposed tooth to decrease sensitivity. A cold pack on your jaw over the sore area may help reduce pain. You may use acetaminophen (Tylenol) or ibuprofen (Motrin, Advil) to control pain, unless another medicine was prescribed. [ NOTE: If you have chronic liver or kidney disease or ever had a stomach ulcer or GI bleeding, talk with your doctor before using these medicines.] If you have signs of an infection, an antibiotic will be given. Take it as directed. Follow-Up as directed with a dentist. Your pain may go away with the treatment given. However, only a dentist can fully evaluate and treat the cause and prevent the pain from coming back again. TOOTHACHE IS A SIGN OF DISEASE IN YOUR TOOTH AND SHOULD BE EXAMINED AND TREATED BY A DENTIST. Get Prompt Medical Attention if any of the following occur: Your face becomes swollen or red Pain worsens or spreads to the neck Fever over 100.4 F (38.0 C) Unusual drowsiness; headache or stiff neck; weakness or fainting Pus drains from the tooth Difficulty swallowing or breathing Marijuana Abuse Marijuana is the most widely used illegal drug in the [place]. It is called by various names such as pot, weed, blunts, grass, reefer, ganja, hash, hashish. It is usually smoked but can be mixed with foods or brewed as a tea. It is sometimes sold with PCP (Michel Dust) or amphetamine mixed in it. These drugs can cause other harmful side effects. Marijuana can cause the following effects: Changes in mood (stimulated, happy, drowsy, depressed, paranoid) Hallucinations Increased heart rate and blood pressure Increased appetite Time distortion, difficulty concentrating, impaired memory Lung damage (similar to cigarettes with chronic cough, wheezing, frequent colds and bronchitis) You can become psychologically dependent on marijuana. That means the craving to use the drug is emotional or psychological rather than due to physical withdrawal. Is Marijuana Running Your Life? Here are some of the signs: Relying on marijuana to feel good, forget problems, deal with stress or to relax Wanting to be alone most of the time or only with others who use drugs Losing interest in things that used to be important Changes in school or job performance or attendance Spending a lot of time thinking about how to get marijuana Stealing or selling your things so you can buy marijuana Unable to stop using even though you may want to quit Increasing anxiety, anger,or depression Sleeping too much, changes in eating habits (weight loss or gain) Needing to use more to get the same effect Home Care Once you have become addicted to any drug, quitting is hard to do. Most people find they can't quit without help. So, dont try to do this alone. Talk to someone you trust who can support you. Seek professional help. Avoid people and places where drugs are used. That only increases the temptation to use. Follow Up with your doctor or as advised by our staff. For more information or a referral to a treatment center in your area, contact: Your local mental health center or the National Alcohol and Substance Abuse Information Center (491)-000-1475 www.addictioncaremakerSQR.fflap National Mobile on Alcoholism and Drug Dependence 748-160-GLBW www.ncadd.org Marijuana Anonymous 879-127-3482 www.marijuana-anonymous.org Get Prompt Medical Attention if any of the following occur: You feel extreme depression, fear, anxiety, or anger toward yourself or others You feel out of control You feel that you may try to harm yourself or another How To Quit Smoking Smoking is one of the hardest habits to break. About half of all those who have ever smoked have been able to quit, and most of those (about 70%) who still smoke want to quit. Here are some of the best ways to stop smoking. Keep Trying: It takes most smokers about 8 tries before they are finally able to fully quit. So, the more often you try and fail, the better your chance of quitting the next time! So, don't give up! Go Cold [place]: Most ex-smokers quit cold turkey. Trying to cut back gradually doesn't seem to work as well, perhaps because it continues the smoking habit. Also, it is possible to fool yourself by inhaling more while smoking fewer cigarettes. This results in the same amount of nicotine in your body! Get Support: Support programs can make an important difference, especially for the heavy smoker. These groups offer lectures, methods to change your behavior and peer support. Call the free national Quitline for more information. 324-NDCV-PKP (651-991-9432). Low-cost or free programs are offered by many hospitals, local chapters of the [place] [employer] (069-975-0158) and the [place] [employer] (437-319-5609). Support at home is important too. Non-smokers can help by offering praise and encouragement. If the smoker fails to quit, encourage them to try again! Hsfc-Xfs-Smgqnfy Medicines: For those who can't quit on their own, Nicotine Replacement Therapy (NRT) may make quitting much easier. Certain aids such as the nicotine patch, gum and lozenge are available without a prescription. However, it is best to use these under the guidance of your doctor. The skin patch provides a steady supply of nicotine to the body. Nicotine gum and lozenge gives temporary bursts of low levels of nicotine. Both methods take the edge off the craving for cigarettes. WARNING: If you feel symptoms of nicotine overdose, such as nausea, vomiting, dizziness, weakness, or fast heartbeat, stop using these and see your doctor. Prescription Medicines: After evaluating your smoking patterns and prior attempts at quitting, your doctor may offer a prescription medicine such as bupropion (Zyban, Wellbutrin), varenicline (Chantix, Champix), a niocotine inhaler or nasal spray. Each has its unique advantage and side effects which your doctor can review with you. Health Benefits Of Quitting: The benefits of quitting start right away and keep improving the longer you go without smokin minutes: blood pressure and pulse return to normal 8 hours: oxygen levels return to normal 2 days: ability to smell and taste begins to improve as damaged nerves start to regrow 2-3 weeks: circulation and lung function improves 1-9 months: decreased cough, congestion and shortness of breath; less tired 1 year: risk of heart attack decreases by half 5 years: risk of lung cancer decreases by half; risk of stroke becomes the same as a non-smoker For information about how to quit smoking, visit the following links: National Cancer [place] , Clearing the Air, Quit Smoking Today - an online booklet. http://www.smokefree.gov/pubs/clearing_the_air.pdf Smokefree.gov http://smokefree.gov/ QuitNet http://www.quitnet.com/ Clindamycin Hydrochloride Oral capsule What is this medicine? CLINDAMYCIN (KELLIE Burnette) is a lincosamide antibiotic. It is used to treat certain kinds of bacterial infections. It will not work for colds, flu, or other viral infections. How should I use this medicine? Take this medicine by mouth with a full glass of water. Follow the directions on the prescription label. You can take this medicine with food or on an empty stomach. If the medicine upsets your stomach, take it with food. Take your medicine at regular intervals. Do not take your medicine more often than directed. Take all of your medicine as directed even if you think your are better. Do not skip doses or stop your medicine early. Talk to your barrel bung remover and dumper regarding the use of this medicine in children. Special care may be needed. What side effects may I notice from receiving this medicine? Side effects that you should report to your doctor or health eye care professional as soon as possible: allergic reactions like skin rash, itching or hives, swelling of the face, lips, or tongue dark urine pain on swallowing redness, blistering, peeling or loosening of the skin, including inside the mouth unusual bleeding or bruising unusually weak or tired yellowing of eyes or skin Side effects that usually do not require medical attention (report to your doctor or health eye care professional if they continue or are bothersome): diarrhea itching in the rectal or genital area joint pain nausea, vomiting stomach pain What may interact with this medicine? chloramphenicol erythromycin kaolin products What if I miss a dose? If you miss a dose, take it as soon as you can. If it is almost time for your next dose, take only that dose. Do not take double or extra doses. Where should I keep my medicine? Keep out of the reach of children. Store at room temperature between 20 and 25 degrees C (68 and 77 degrees F). Throw away any unused medicine after the expiration date. What should I tell my health care provider before I take this medicine? They need to know if you have any of these conditions: kidney disease liver disease stomach problems like colitis an unusual or allergic reaction to clindamycin, lincomycin, or other medicines, foods, dyes like tartrazine or preservatives or trying to get breast-feeding What should I watch for while using this medicine? Tell your doctor or healthcare professional if your symptoms do not start to get better or if they get worse. Do not treat diarrhea with over the counter products. Contact your doctor if you have diarrhea that lasts more than 2 days or if it is severe and watery. Oxycodone Hydrochloride, Acetaminophen Oral tablet What is this medicine? ACETAMINOPHEN; OXYCODONE (a set a LEEROY zahida fen; ox i XIOMARA done) is a pain reliever. It is used to treat mild to moderate pain. How should I use this medicine? Take this medicine by mouth with a full glass of water. Follow the directions on the prescription label. Take your medicine at regular intervals. Do not take your medicine more often than directed. Talk to your barrel bung remover and dumper regarding the use of this medicine in children. Special care may be needed. Patients over 65 years old may have a stronger reaction and need a smaller dose. What side effects may I notice from receiving this medicine? Side effects that you should report to your doctor or health eye care professional as soon as possible: allergic reactions like skin rash, itching or hives, swelling of the face, lips, or tongue breathing difficulties, wheezing confusion light headedness or fainting spells severe stomach pain yellowing of the skin or the whites of the eyes Side effects that usually do not require medical attention (report to your doctor or health eye care professional if they continue or are bothersome): dizziness drowsiness nausea vomiting What may interact with this medicine? alcohol antihistamines barbiturates like amobarbital, butalbital, butabarbital, methohexital, pentobarbital, phenobarbital, thiopental, and secobarbital benztropine drugs for bladder problems like solifenacin, trospium, oxybutynin, tolterodine, hyoscyamine, and methscopolamine drugs for breathing problems like ipratropium and tiotropium drugs for certain stomach or intestine problems like propantheline, homatropine methylbromide, glycopyrrolate, atropine, belladonna, and dicyclomine general anesthetics like etomidate, ketamine, nitrous oxide, propofol, desflurane, enflurane, halothane, isoflurane, and sevoflurane medicines for depression, anxiety, or psychotic disturbances medicines for sleep muscle relaxants naltrexone narcotic medicines (opiates) for pain phenothiazines like perphenazine, thioridazine, chlorpromazine, mesoridazine, fluphenazine, prochlorperazine, promazine, and trifluoperazine scopolamine tramadol trihexyphenidyl What if I miss a dose? If you miss a dose, take it as soon as you can. If it is almost time for your next dose, take only that dose. Do not take double or extra doses. Where should I keep my medicine? Keep out of the reach of children. This medicine can be abused. Keep your medicine in a safe place to protect it from theft. Do not share this medicine with anyone. Selling or giving away this medicine is dangerous and against the law. Store at room temperature between 20 and 25 degrees C (68 and 77 degrees F). Keep container tightly closed. Protect from light. This medicine may cause accidental overdose and if it is taken by other adults, children, or pets. Flush any unused medicine down the toilet to reduce the chance of harm. Do not use the medicine after the expiration date. What should I tell my health care provider before I take this medicine? They need to know if you have any of these conditions: brain tumor Crohn's disease, inflammatory bowel disease, or ulcerative colitis drink more than 3 alcohol containing drinks per day drug abuse or addiction head injury heart or circulation problems kidney disease or problems going to the bathroom liver disease lung disease, asthma, or breathing problems an unusual or allergic reaction to acetaminophen, oxycodone, other opioid analgesics, other medicines, foods, dyes, or preservatives or trying to get breast-feeding What should I watch for while using this medicine? Tell your doctor or health eye care professional if your pain does not go away, if it gets worse, or if you have new or a different type of pain. You may develop tolerance to the medicine. Tolerance means that you will need a higher dose of the medication for pain relief. Tolerance is normal and is expected if you take this medicine for a long time. Do not suddenly stop taking your medicine because you may develop a severe reaction. Your body becomes used to the medicine. This does NOT mean you are addicted. Addiction is a behavior related to getting and using a drug for a non-medical reason. If you have pain, you have a medical reason to take pain medicine. Your doctor will tell you how much medicine to take. If your doctor wants you to stop the medicine, the dose will be slowly lowered over time to avoid any side effects. You may get drowsy or dizzy. Do not drive, use machinery, or do anything that needs mental alertness until you know how this medicine affects you. Do not stand or sit up quickly, especially if you are an older patient. This reduces the risk of dizzy or fainting spells. Alcohol may interfere with the effect of this medicine. Avoid alcoholic drinks. There are different types of narcotic medicines (opiates) for pain. If you take more than one type at the same time, you may have more side effects. Give your health care provider a list of all medicines you use. Your doctor will tell you how much medicine to take. Do not take more medicine than directed. Call emergency for help if you have problems breathing. The medicine will cause constipation. Try to have a bowel movement at least every 2 to 3 days. If you do not have a bowel movement for 3 days, call your doctor or health eye care professional. Do not take Tylenol (acetaminophen) or medicines that have acetaminophen with this medicine. Too much acetaminophen can be very dangerous. Many nonprescription medicines contain acetaminophen. Always read the labels carefully to avoid taking more acetaminophen. Ibuprofen Oral tablet What is this medicine? IBUPROFEN (eye BYOO proe fen) is a non-steroidal anti-inflammatory drug (NSAID). It is used for dental pain, fever, headaches or migraines, osteoarthritis, rheumatoid arthritis, or painful monthly periods. It can also relieve minor aches and pains caused by a cold, flu, or sore throat. How should I use this medicine? Take this medicine by mouth with a glass of water. Follow the directions on the prescription label. Take this medicine with food if your stomach gets upset. Try to not lie down for at least 10 minutes after you take the medicine. Take your medicine at regular intervals. Do not take your medicine more often than directed. A special MedGuide will be given to you by the pharmacist with each prescription and refill. Be sure to read this information carefully each time. Talk to your barrel bung remover and dumper regarding the use of this medicine in children. Special care may be needed. What side effects may I notice from receiving this medicine? Side effects that you should report to your doctor or health eye care professional as soon as possible: allergic reactions like skin rash, itching or hives, swelling of the face, lips, or tongue black or bloody stools, blood in the urine or in vomit breathing problems changes in vision chest pain general ill feeling or flu-like symptoms nausea or vomiting redness, blistering, peeling or loosening of the skin, including inside the mouth slurred speech or weakness on one side of the body stomach pain unexplained weight gain or swelling unusually weak or tired yellowing of eyes or skin Side effects that usually do not require medical attention (report to your doctor or health eye care professional if they continue or are bothersome): constipation or diarrhea dizziness gas or heartburn stomach upset What may interact with this medicine? Do not take this medicine with any of the following medications: cidofovir ketorolac methotrexate pemetrexed This medicine may also interact with the following medications: alcohol aspirin diuretics lithium other drugs for inflammation like prednisone warfarin What if I miss a dose? If you miss a dose, take it as soon as you can. If it is almost time for your next dose, take only that dose. Do not take double or extra doses. Where should I keep my medicine? Keep out of the reach of children. Store at room temperature between 15 and 30 degrees C (59 and 86 degrees F). Keep container tightly closed. Throw away any unused medicine after the expiration date. What should I tell my health care provider before I take this medicine? They need to know if you have any of these conditions: asthma cigarette smoker drink more than 3 alcohol containing drinks a day heart disease or circulation problems such as heart failure or leg edema (fluid retention) high blood pressure kidney disease liver disease stomach bleeding or ulcers an unusual or allergic reaction to ibuprofen, aspirin, other NSAIDS, other medicines, foods, dyes, or preservatives or trying to get breast-feeding What should I watch for while using this medicine? Tell your doctor or healthcare professional if your symptoms do not start to get better or if they get worse. This medicine does not prevent heart attack or stroke. In fact, this medicine may increase the chance of a heart attack or stroke. The chance may increase with longer use of this medicine and in people who have heart disease. If you take aspirin to prevent heart attack or stroke, talk with your doctor or health eye care professional. Do not take other medicines that contain aspirin, ibuprofen, or naproxen with this medicine. Side effects such as stomach upset, nausea, or ulcers may be more likely to occur. Many medicines available without a prescription should not be taken with this medicine. This medicine can cause ulcers and bleeding in the stomach and intestines at any time during treatment. Ulcers and bleeding can happen without warning symptoms and can cause . To reduce your risk, do not smoke cigarettes or drink alcohol while you are taking this medicine. You may get drowsy or dizzy. Do not drive, use machinery, or do anything that needs mental alertness until you know how this medicine affects you. Do not stand or sit up quickly, especially if you are an older patient. This reduces the risk of dizzy or fainting spells. This medicine can cause you to bleed more easily. Try to avoid damage to your teeth and gums when you brush or floss your teeth. You have been given the following additional information: Dental Pain Marijuana Abuse Smoking Cessation Clindamycin Hydrochloride Oral capsule Oxycodone Hydrochloride, Acetaminophen Oral tablet Ibuprofen Oral tablet (Electronically signed by Kayode Braswell DO 01/15/2017 20:05)
--- NOTE | 2017-01-15 20:05 | ED DISCHARGE INSTRUCTIONS ---
Patient: ROSA ELENA HANNA General Instructions [facility] VisitID: [id number] [place] [address] 66y, M Registration Date/Time: 01/15/2017 Dental pain (post extraction pain left lower dentition). Chronic substance abuse- tobacco (cigarettes), marijuana with anxiety. INSTRUCTIONS Drink plenty of fluids. Do not smoke. Seek medical help to quit smoking. Warnings: Further evaluation is necessary. It is very important to follow up with a physician. SEDATIVE MEDICATION: You were given sedative medication during your visit. Do not drive or operate dangerous machinery. CONTROLLED SUBSTANCE WARNINGS. GENERAL WARNINGS: Return or contact your physician immediately if your condition worsens or changes unexpectedly, if not improving as expected, or if other problems arise. Your Current Medications: CONTINUE TAKING THE FOLLOWING MEDICATIONS: Gabapentin Oral : Capsule 300 mg, 3x a day. Oxybutynin Chloride ER Oral : daily. Prescription Medications: Cleocin 300 mg: take 1 capsule orally every 6 hours for 7 days. No refills. Substitution is permissible. Percocet 5 mg/325 mg: take 1-2 tablets orally every 6 hours as needed for pain. Dispense ten (10). No refill. Substitution is permissible. OTC Medications: Motrin (available over the counter): take according to label instructions. Follow-up: Follow up with your doctor in two days. Follow up with a dentist and an oral surgeon in about two days. Follow-up with: Mau Wise MD, [facility], , [facility], [id number] [id number] Follow up in about two days. ADDITIONAL INFORMATION Dental Pain A crack or cavity in the tooth, which exposes the sensitive inner area of the tooth can cause tooth pain. An infection in the gum or the root of the tooth can cause pain and swelling. The pain is often made worse by drinking hot or cold fluids, or biting on hard foods. Pain may spread from the tooth to the ear or jaw on the same side. Home Care: Avoid hot and cold foods and liquids since your tooth may be sensitive to temperature changes. If your tooth is chipped or cracked, or if there is a large open cavity, apply OIL OF CLOVES (available wptq-byd-tfianxo in drug stores) directly to the tooth to reduce pain. Some pharmacies carry an ilqd-fbr-rpscbeo "toothache kit." This contains a paste, which can be applied over the exposed tooth to decrease sensitivity. A cold pack on your jaw over the sore area may help reduce pain. You may use acetaminophen (Tylenol) or ibuprofen (Motrin, Advil) to control pain, unless another medicine was prescribed. [ NOTE: If you have chronic liver or kidney disease or ever had a stomach ulcer or GI bleeding, talk with your doctor before using these medicines.] If you have signs of an infection, an antibiotic will be given. Take it as directed. Follow-Up as directed with a dentist. Your pain may go away with the treatment given. However, only a dentist can fully evaluate and treat the cause and prevent the pain from coming back again. TOOTHACHE IS A SIGN OF DISEASE IN YOUR TOOTH AND SHOULD BE EXAMINED AND TREATED BY A DENTIST. Get Prompt Medical Attention if any of the following occur: Your face becomes swollen or red Pain worsens or spreads to the neck Fever over 100.4 F (38.0 C) Unusual drowsiness; headache or stiff neck; weakness or fainting Pus drains from the tooth Difficulty swallowing or breathing Marijuana Abuse Marijuana is the most widely used illegal drug in the [place]. It is called by various names such as pot, weed, blunts, grass, reefer, ganja, hash, hashish. It is usually smoked but can be mixed with foods or brewed as a tea. It is sometimes sold with PCP (Michel Dust) or amphetamine mixed in it. These drugs can cause other harmful side effects. Marijuana can cause the following effects: Changes in mood (stimulated, happy, drowsy, depressed, paranoid) Hallucinations Increased heart rate and blood pressure Increased appetite Time distortion, difficulty concentrating, impaired memory Lung damage (similar to cigarettes with chronic cough, wheezing, frequent colds and bronchitis) You can become psychologically dependent on marijuana. That means the craving to use the drug is emotional or psychological rather than due to physical withdrawal. Is Marijuana Running Your Life? Here are some of the signs: Relying on marijuana to feel good, forget problems, deal with stress or to relax Wanting to be alone most of the time or only with others who use drugs Losing interest in things that used to be important Changes in school or job performance or attendance Spending a lot of time thinking about how to get marijuana Stealing or selling your things so you can buy marijuana Unable to stop using even though you may want to quit Increasing anxiety, anger,or depression Sleeping too much, changes in eating habits (weight loss or gain) Needing to use more to get the same effect Home Care Once you have become addicted to any drug, quitting is hard to do. Most people find they can't quit without help. So, dont try to do this alone. Talk to someone you trust who can support you. Seek professional help. Avoid people and places where drugs are used. That only increases the temptation to use. Follow Up with your doctor or as advised by our staff. For more information or a referral to a treatment center in your area, contact: Your local mental health center or the National Alcohol and Substance Abuse Information Center (782)-271-6220 www.addictioncareDashbid.myRete National [place] on Alcoholism and Drug Dependence 744-311-GSCD www.ncadd.org Marijuana Anonymous 784-189-2275 www.marijuana-anonymous.org Get Prompt Medical Attention if any of the following occur: You feel extreme depression, fear, anxiety, or anger toward yourself or others You feel out of control You feel that you may try to harm yourself or another How To Quit Smoking Smoking is one of the hardest habits to break. About half of all those who have ever smoked have been able to quit, and most of those (about 70%) who still smoke want to quit. Here are some of the best ways to stop smoking. Keep Trying: It takes most smokers about 8 tries before they are finally able to fully quit. So, the more often you try and fail, the better your chance of quitting the next time! So, don't give up! Go Cold [place]: Most ex-smokers quit cold turkey. Trying to cut back gradually doesn't seem to work as well, perhaps because it continues the smoking habit. Also, it is possible to fool yourself by inhaling more while smoking fewer cigarettes. This results in the same amount of nicotine in your body! Get Support: Support programs can make an important difference, especially for the heavy smoker. These groups offer lectures, methods to change your behavior and peer support. Call the free national Quitline for more information. 639-YJIL-NOO (236-792-5054). Low-cost or free programs are offered by many hospitals, local chapters of the [place] [employer] (033-898-0956) and the [place] [employer] (150-730-9543). Support at home is important too. Non-smokers can help by offering praise and encouragement. If the smoker fails to quit, encourage them to try again! Lbjl-Vjz-Bppvphy Medicines: For those who can't quit on their own, Nicotine Replacement Therapy (NRT) may make quitting much easier. Certain aids such as the nicotine patch, gum and lozenge are available without a prescription. However, it is best to use these under the guidance of your doctor. The skin patch provides a steady supply of nicotine to the body. Nicotine gum and lozenge gives temporary bursts of low levels of nicotine. Both methods take the edge off the craving for cigarettes. WARNING: If you feel symptoms of nicotine overdose, such as nausea, vomiting, dizziness, weakness, or fast heartbeat, stop using these and see your doctor. Prescription Medicines: After evaluating your smoking patterns and prior attempts at quitting, your doctor may offer a prescription medicine such as bupropion (Zyban, Wellbutrin), varenicline (Chantix, Champix), a niocotine inhaler or nasal spray. Each has its unique advantage and side effects which your doctor can review with you. Health Benefits Of Quitting: The benefits of quitting start right away and keep improving the longer you go without smokin minutes: blood pressure and pulse return to normal 8 hours: oxygen levels return to normal 2 days: ability to smell and taste begins to improve as damaged nerves start to regrow 2-3 weeks: circulation and lung function improves 1-9 months: decreased cough, congestion and shortness of breath; less tired 1 year: risk of heart attack decreases by half 5 years: risk of lung cancer decreases by half; risk of stroke becomes the same as a non-smoker For information about how to quit smoking, visit the following links: National Cancer [place] , Clearing the Air, Quit Smoking Today - an online booklet. http://www.smokefree.gov/pubs/clearing_the_air.pdf Smokefree.gov http://smokefree.gov/ QuitNet http://www.quitnet.com/ Clindamycin Hydrochloride Oral capsule What is this medicine? CLINDAMYCIN (KELLIE Burnette) is a lincosamide antibiotic. It is used to treat certain kinds of bacterial infections. It will not work for colds, flu, or other viral infections. How should I use this medicine? Take this medicine by mouth with a full glass of water. Follow the directions on the prescription label. You can take this medicine with food or on an empty stomach. If the medicine upsets your stomach, take it with food. Take your medicine at regular intervals. Do not take your medicine more often than directed. Take all of your medicine as directed even if you think your are better. Do not skip doses or stop your medicine early. Talk to your material clerk regarding the use of this medicine in children. Special care may be needed. What side effects may I notice from receiving this medicine? Side effects that you should report to your doctor or health resident care technician as soon as possible: allergic reactions like skin rash, itching or hives, swelling of the face, lips, or tongue dark urine pain on swallowing redness, blistering, peeling or loosening of the skin, including inside the mouth unusual bleeding or bruising unusually weak or tired yellowing of eyes or skin Side effects that usually do not require medical attention (report to your doctor or health resident care technician if they continue or are bothersome): diarrhea itching in the rectal or genital area joint pain nausea, vomiting stomach pain What may interact with this medicine? chloramphenicol erythromycin kaolin products What if I miss a dose? If you miss a dose, take it as soon as you can. If it is almost time for your next dose, take only that dose. Do not take double or extra doses. Where should I keep my medicine? Keep out of the reach of children. Store at room temperature between 20 and 25 degrees C (68 and 77 degrees F). Throw away any unused medicine after the expiration date. What should I tell my health care provider before I take this medicine? They need to know if you have any of these conditions: kidney disease liver disease stomach problems like colitis an unusual or allergic reaction to clindamycin, lincomycin, or other medicines, foods, dyes like tartrazine or preservatives or trying to get breast-feeding What should I watch for while using this medicine? Tell your doctor or healthcare professional if your symptoms do not start to get better or if they get worse. Do not treat diarrhea with over the counter products. Contact your doctor if you have diarrhea that lasts more than 2 days or if it is severe and watery. Oxycodone Hydrochloride, Acetaminophen Oral tablet What is this medicine? ACETAMINOPHEN; OXYCODONE (a set a LEEROY zahida fen; ox i XIOMARA done) is a pain reliever. It is used to treat mild to moderate pain. How should I use this medicine? Take this medicine by mouth with a full glass of water. Follow the directions on the prescription label. Take your medicine at regular intervals. Do not take your medicine more often than directed. Talk to your material clerk regarding the use of this medicine in children. Special care may be needed. Patients over 65 years old may have a stronger reaction and need a smaller dose. What side effects may I notice from receiving this medicine? Side effects that you should report to your doctor or health resident care technician as soon as possible: allergic reactions like skin rash, itching or hives, swelling of the face, lips, or tongue breathing difficulties, wheezing confusion light headedness or fainting spells severe stomach pain yellowing of the skin or the whites of the eyes Side effects that usually do not require medical attention (report to your doctor or health resident care technician if they continue or are bothersome): dizziness drowsiness nausea vomiting What may interact with this medicine? alcohol antihistamines barbiturates like amobarbital, butalbital, butabarbital, methohexital, pentobarbital, phenobarbital, thiopental, and secobarbital benztropine drugs for bladder problems like solifenacin, trospium, oxybutynin, tolterodine, hyoscyamine, and methscopolamine drugs for breathing problems like ipratropium and tiotropium drugs for certain stomach or intestine problems like propantheline, homatropine methylbromide, glycopyrrolate, atropine, belladonna, and dicyclomine general anesthetics like etomidate, ketamine, nitrous oxide, propofol, desflurane, enflurane, halothane, isoflurane, and sevoflurane medicines for depression, anxiety, or psychotic disturbances medicines for sleep muscle relaxants naltrexone narcotic medicines (opiates) for pain phenothiazines like perphenazine, thioridazine, chlorpromazine, mesoridazine, fluphenazine, prochlorperazine, promazine, and trifluoperazine scopolamine tramadol trihexyphenidyl What if I miss a dose? If you miss a dose, take it as soon as you can. If it is almost time for your next dose, take only that dose. Do not take double or extra doses. Where should I keep my medicine? Keep out of the reach of children. This medicine can be abused. Keep your medicine in a safe place to protect it from theft. Do not share this medicine with anyone. Selling or giving away this medicine is dangerous and against the law. Store at room temperature between 20 and 25 degrees C (68 and 77 degrees F). Keep container tightly closed. Protect from light. This medicine may cause accidental overdose and if it is taken by other adults, children, or pets. Flush any unused medicine down the toilet to reduce the chance of harm. Do not use the medicine after the expiration date. What should I tell my health care provider before I take this medicine? They need to know if you have any of these conditions: brain tumor Crohn's disease, inflammatory bowel disease, or ulcerative colitis drink more than 3 alcohol containing drinks per day drug abuse or addiction head injury heart or circulation problems kidney disease or problems going to the bathroom liver disease lung disease, asthma, or breathing problems an unusual or allergic reaction to acetaminophen, oxycodone, other opioid analgesics, other medicines, foods, dyes, or preservatives or trying to get breast-feeding What should I watch for while using this medicine? Tell your doctor or health resident care technician if your pain does not go away, if it gets worse, or if you have new or a different type of pain. You may develop tolerance to the medicine. Tolerance means that you will need a higher dose of the medication for pain relief. Tolerance is normal and is expected if you take this medicine for a long time. Do not suddenly stop taking your medicine because you may develop a severe reaction. Your body becomes used to the medicine. This does NOT mean you are addicted. Addiction is a behavior related to getting and using a drug for a non-medical reason. If you have pain, you have a medical reason to take pain medicine. Your doctor will tell you how much medicine to take. If your doctor wants you to stop the medicine, the dose will be slowly lowered over time to avoid any side effects. You may get drowsy or dizzy. Do not drive, use machinery, or do anything that needs mental alertness until you know how this medicine affects you. Do not stand or sit up quickly, especially if you are an older patient. This reduces the risk of dizzy or fainting spells. Alcohol may interfere with the effect of this medicine. Avoid alcoholic drinks. There are different types of narcotic medicines (opiates) for pain. If you take more than one type at the same time, you may have more side effects. Give your health care provider a list of all medicines you use. Your doctor will tell you how much medicine to take. Do not take more medicine than directed. Call emergency for help if you have problems breathing. The medicine will cause constipation. Try to have a bowel movement at least every 2 to 3 days. If you do not have a bowel movement for 3 days, call your doctor or health resident care technician. Do not take Tylenol (acetaminophen) or medicines that have acetaminophen with this medicine. Too much acetaminophen can be very dangerous. Many nonprescription medicines contain acetaminophen. Always read the labels carefully to avoid taking more acetaminophen. Ibuprofen Oral tablet What is this medicine? IBUPROFEN (eye BYOO proe fen) is a non-steroidal anti-inflammatory drug (NSAID). It is used for dental pain, fever, headaches or migraines, osteoarthritis, rheumatoid arthritis, or painful monthly periods. It can also relieve minor aches and pains caused by a cold, flu, or sore throat. How should I use this medicine? Take this medicine by mouth with a glass of water. Follow the directions on the prescription label. Take this medicine with food if your stomach gets upset. Try to not lie down for at least 10 minutes after you take the medicine. Take your medicine at regular intervals. Do not take your medicine more often than directed. A special MedGuide will be given to you by the pharmacist with each prescription and refill. Be sure to read this information carefully each time. Talk to your material clerk regarding the use of this medicine in children. Special care may be needed. What side effects may I notice from receiving this medicine? Side effects that you should report to your doctor or health resident care technician as soon as possible: allergic reactions like skin rash, itching or hives, swelling of the face, lips, or tongue black or bloody stools, blood in the urine or in vomit breathing problems changes in vision chest pain general ill feeling or flu-like symptoms nausea or vomiting redness, blistering, peeling or loosening of the skin, including inside the mouth slurred speech or weakness on one side of the body stomach pain unexplained weight gain or swelling unusually weak or tired yellowing of eyes or skin Side effects that usually do not require medical attention (report to your doctor or health resident care technician if they continue or are bothersome): constipation or diarrhea dizziness gas or heartburn stomach upset What may interact with this medicine? Do not take this medicine with any of the following medications: cidofovir ketorolac methotrexate pemetrexed This medicine may also interact with the following medications: alcohol aspirin diuretics lithium other drugs for inflammation like prednisone warfarin What if I miss a dose? If you miss a dose, take it as soon as you can. If it is almost time for your next dose, take only that dose. Do not take double or extra doses. Where should I keep my medicine? Keep out of the reach of children. Store at room temperature between 15 and 30 degrees C (59 and 86 degrees F). Keep container tightly closed. Throw away any unused medicine after the expiration date. What should I tell my health care provider before I take this medicine? They need to know if you have any of these conditions: asthma cigarette smoker drink more than 3 alcohol containing drinks a day heart disease or circulation problems such as heart failure or leg edema (fluid retention) high blood pressure kidney disease liver disease stomach bleeding or ulcers an unusual or allergic reaction to ibuprofen, aspirin, other NSAIDS, other medicines, foods, dyes, or preservatives or trying to get breast-feeding What should I watch for while using this medicine? Tell your doctor or healthcare professional if your symptoms do not start to get better or if they get worse. This medicine does not prevent heart attack or stroke. In fact, this medicine may increase the chance of a heart attack or stroke. The chance may increase with longer use of this medicine and in people who have heart disease. If you take aspirin to prevent heart attack or stroke, talk with your doctor or health resident care technician. Do not take other medicines that contain aspirin, ibuprofen, or naproxen with this medicine. Side effects such as stomach upset, nausea, or ulcers may be more likely to occur. Many medicines available without a prescription should not be taken with this medicine. This medicine can cause ulcers and bleeding in the stomach and intestines at any time during treatment. Ulcers and bleeding can happen without warning symptoms and can cause . To reduce your risk, do not smoke cigarettes or drink alcohol while you are taking this medicine. You may get drowsy or dizzy. Do not drive, use machinery, or do anything that needs mental alertness until you know how this medicine affects you. Do not stand or sit up quickly, especially if you are an older patient. This reduces the risk of dizzy or fainting spells. This medicine can cause you to bleed more easily. Try to avoid damage to your teeth and gums when you brush or floss your teeth. You have been given the following additional information: Dental Pain Marijuana Abuse Smoking Cessation Clindamycin Hydrochloride Oral capsule Oxycodone Hydrochloride, Acetaminophen Oral tablet Ibuprofen Oral tablet (Electronically signed by Kayode Braswell DO 01/15/2017 20:05)
--- NOTE | 2017-01-15 20:06 | ED MED RECONCILIATION SUMMARY ---
Patient: ROSA ELENA HANNA Medication Reconciliation Report [facility] VisitID: [id number] [address] [place] [address] 66y, M Registration Date/Time: 01/15/2017 Weight: 72.5 kg Height/Length: 70 in. BMI: 22.9 ALLERGIES: Tramadol The patient's Home Medications are listed below: CONTINUE TAKING THE FOLLOWING MEDICATIONS: Gabapentin Oral (300 mg), 3x a day Oxybutynin Chloride ER Oral, daily THE FOLLOWING MEDICATIONS NEED TO BE RECONCILED: Hydrocodone-Acetaminophen Oral (10-325 mg) 1 tablet, 4x a day The source(s) of the original Home Medication information: Not obtained. The following Medications were given to the patient in the Emergency Department: None. The following Medications were prescribed to the patient: Motrin (available over the counter): take according to label instructions. -- Kayode Braswell DO Cleocin 300 mg: take 1 capsule orally every 6 hours for 7 days. No refills. Substitution is permissible. -- Kayode Braswell DO Percocet 5 mg/325 mg: take 1-2 tablets orally every 6 hours as needed for pain. Dispense ten (10). No refill. Substitution is permissible. -- Kayode Braswell DO
--- NOTE | 2017-01-15 20:06 | ED MED RECONCILIATION SUMMARY ---
Patient: ROSA ELENA HANNA Medication Reconciliation Report [facility] VisitID: [id number] [address] [place] [address] 66y, M Registration Date/Time: 01/15/2017 Weight: 72.5 kg Height/Length: 70 in. BMI: 22.9 ALLERGIES: Tramadol The patient's Home Medications are listed below: CONTINUE TAKING THE FOLLOWING MEDICATIONS: Gabapentin Oral (300 mg), 3x a day Oxybutynin Chloride ER Oral, daily THE FOLLOWING MEDICATIONS NEED TO BE RECONCILED: Hydrocodone-Acetaminophen Oral (10-325 mg) 1 tablet, 4x a day The source(s) of the original Home Medication information: Not obtained. The following Medications were given to the patient in the Emergency Department: None. The following Medications were prescribed to the patient: Motrin (available over the counter): take according to label instructions. -- Kayode Braswell DO Cleocin 300 mg: take 1 capsule orally every 6 hours for 7 days. No refills. Substitution is permissible. -- Kayode Braswell DO Percocet 5 mg/325 mg: take 1-2 tablets orally every 6 hours as needed for pain. Dispense ten (10). No refill. Substitution is permissible. -- Kayode Braswell DO
--- NOTE | 2017-01-15 20:06 | ED MAR SUMMARY ---
..... Medication Administration Record [facility] [address] [place], [place] [id number] Patient: ROSA ELENA HANNA Visit ID: [id number] 66y, M Weight: 72.5 kg Height/Length: 70 in BMI: 22.9 ALLERGIES: Tramadol
--- NOTE | 2017-01-15 20:06 | ED MAR SUMMARY ---
..... Medication Administration Record [facility] [address] [place], [place] [id number] Patient: ROSA ELENA HANNA Visit ID: [id number] 66y, M Weight: 72.5 kg Height/Length: 70 in BMI: 22.9 ALLERGIES: Tramadol
== END 2017-01-15 18:12 | disposition home or self-care (01) ==
LOC: ED SRH 17:36
DX: K08.89 Other specified disorders of teeth and supporting structures (principal); Z98.818 Other dental procedure status; F17.210 Nicotine dependence, cigarettes, uncomplicated; F12.180 Cannabis abuse with cannabis-induced anxiety disorder; I10 Essential (primary) hypertension